=== PATIENT | male | born 1975 | race Caucasian/White ===

== ENCOUNTER 2018-12-11 15:59 | Inpatient (IN) | payer SELFPAY ==
[~2018-12-11] VITALS: Ht 185.4 cm; Wt 117.1 kg
--- NOTE | ~2018-12-11 | CON ---
[place], [place] REPORT OF CONSULTATION NAME: DORA LEE UNIT #: [id number] ROOM: 416 DOCTOR: DUY RIOS MDELIJAHLAWANDA BIRTHDATE: [birth year] DOS: 12/12/2018 GASTROENDOSCOPIC REPORT HISTORY OF PRESENT ILLNESS: This is a 43-year-old patient, who has presented with chief complaint of persistent nausea, vomiting, undergoing investigation and has consultation. At the time of admission, when he presented, white blood cell was 16, H and H was 17 and 49. His comprehensive metabolic panel: BUN and creatinine 24 and 1.6. His electrolytes, potassium was 3.1. Liver function test was within normal limits relatively except slight elevation of AST. Lipase was 95. CT scan of the abdomen and pelvis, no acute inflammatory process was seen. Gallbladder was intact. Lungs are clear. Liver, spleen, adrenal glands, pancreas, and kidneys, main organs are within normal limits. Troponin is within normal limits. Drug screening was THC positive slightly. White blood cell continued to be 14, elevated. Basic metabolic panel, electrolytes corrected. Hemoglobin A1c is 5. PAST MEDICAL HISTORY: Associated with dysphagia, nausea, renal insufficiency, epigastric pain, vomiting, also associated with gastroesophageal reflux and cannabis use. PAST SURGICAL HISTORY: Endoscopy and tonsillectomy. MEDICATIONS: Medication list include esomeprazole. ALLERGIES: No known medications. FAMILY HISTORY: Noncontributory. REVIEW OF SYSTEMS: HEENT: In general, denies double vision or blurred vision. RESPIRATORY: Denies acute shortness of breath. CARDIOVASCULAR: Denies acute chest pain. DIGESTIVE SYSTEM: Nausea or vomiting. PHYSICAL EXAMINATION: VITAL SIGNS: Stable. HEENT: Within normal limits. NECK: Supple. No thyromegaly. No cervical lymphadenopathy. CHEST: Symmetric anatomy, equal expansion. No wheeze. No rhonchi. HEART: Normal sinus rhythm. No gallop. No murmur. ABDOMEN: Soft. No hepato-organomegaly. Bowel sounds present. No pulsatile masses. EXTREMITIES: No cyanosis. No pedal edema. NEUROLOGIC: He is alert and oriented to time, place, and person. LABORATORY DATA: Labs are reviewed. Records are reviewed. IMPRESSION: Nausea, vomiting, renal insufficiency, leukocytosis could be secondary to nausea and vomiting, gastroesophageal reflux, and cannabis use. [place], [place] REPORT OF CONSULTATION NAME: DORA LEE UNIT #: [id number] ROOM: 416 DOCTOR: ROXI RIOS MD BIRTHDATE: [birth year] PLAN AND DISCUSSION: Endoscopic assessment. Labs are reviewed. Records are reviewed. Data was reviewed. We will consider endoscopy today. CT scan of the abdomen has been reviewed. Troponin has been reviewed, all normal. ROXI RIOS MD CM:CONSTR:REPORT OF CONSULTATION 1857 12/13/18 0230 interface
--- NOTE | ~2018-12-11 | EKG ---
[place], [place] ELECTROCARDIOGRAM REPORT NAME: DORA LEE UNIT #: [id number] ROOM: 416 DOCTOR: SUBHA DRAFT REPORT BIRTHDATE: [birth year] [facility] Test Date: 2018-12-12 Test Time: 00:34:43 Pat Name: DORA LEE Department: Room: 416 1 Gender: M Spiritual Advisor: : 1975 Requested By: SHAYNA KESSLER Order Number: [id number] Reading MD: Melo Rosas MD Measurements Intervals [place] Rate: 82 P: 63 NE: 142 QRS: 75 QRSD: 93 T: 41 QT: 370 QTc: 432 Interpretive Statements Sinus rhythm Electronically Signed On 12-12-2018 14:38:01 PDT by Melo Rosas MD CM:EKGRPT:ELECTROCARDIOGRAM REPORT 0034 1438 SHAYNA JACKSON DRAFT REPORT SHAYNA KESSLER DO
--- NOTE | ~2018-12-11 | O ---
[place], [place] OPERATIVE NOTE NAME: DORA LEE UNIT #: [id number] ROOM: 416 DOCTOR: GABRIEL OWENS,ROXI BIRTHDATE: [birth year] DOS: GASTROENDOSCOPIC REPORT INDICATIONS: The patient has presented with aggressive nausea, vomiting, persistently undergoing investigation. PROCEDURE: Today's procedure part of investigation is panendoscopy plus biopsy. PREMEDICATION: Propofol. SCOPE: Olympus forward-viewing gastroscope Q10 video. REPORT: After putting the patient in left lateral position and application of lubricant to the scope, the scope was introduced. Thereafter, under direct visualization, advanced through the length of esophagus without difficulty. Diffuse esophageal ulceration secondary to reflux was identified. Hiatal hernia noticed. Gastric pouch was entered. Large volume of bilious matter from the gastric pouch was suctioned out. Photographic series obtained. Antral biopsy was obtained. Duodenal bulb, second and third part within normal limits. The patient extubated, tolerated the procedure well. IMPRESSION: 1. Diffuse esophageal ulcer secondary to reflux, hiatal hernia. 2. Bile reflux gastritis, status post biopsy. PLAN AND DISCUSSION: Aggressive antireflux therapy. Elevation of the head of the bed 6 inch all time, Gaviscon as antacid of choice, Carafate 2 grams slurry q.6 hours, 2 hours a.c. meals and at bedtime, Gaviscon 1 tablet p.c meals, Protonix 40 mg IV b.i.d., Reglan 5 mg a.m. and p.m. Clinical reassessment. ROXI RIOS MD CM:OPRECORD:OPERATIVE NOTE 09 41 ROXI RIOS MD 12/12/181937 interface
[2018-12-11] MEDS ORDERED: NEXIUM40 MG PO (16:02)
[2018-12-11 16:03] VITALS: BP 147/100
[2018-12-11 16:50] LABS: BASO % 0.2 % (0.0-1.0); EOS % 0.1 % (1.0-4.0); HEMATOCRIT 49.5 % (42.0-52.0); HEMOGLOBIN 17.6 g/dl (14.0-18.0); LYMPH # 2.7 10*3/uL (1.3-4.4); LYMPH % 16.3 % (27.0-41.0); MEAN CORPUSCULAR HGB 31.7 pg (27.0-31.0); MEAN CORPUSCULAR HGB CONC 35.6 g/dl (33.0-37.0); MEAN PLATELET VOLUME 9.8 fl (9.6-12.3); MONO # 1.1 10*3/uL (0.1-1.0); MONO % 6.4 % (3.0-9.0); NEUT # 12.8 10*3/uL (2.3-7.9); NEUT % 76.6 % (47.0-73.0); PLATELET COUNT AUTOMATED 312 10*3/uL (130-400); RED BLOOD COUNT 5.56 10*6/uL (4.50-5.90); RED CELL DISTRI WIDTH 12.3 % (0-14.5); WHITE BLOOD COUNT 16.8 10*3/uL (4.8-10.8)
--- NOTE | 2018-12-11 17:00 | NUR ---
AFTER ADMINISTERING PAIN MEDICATION PT ASLEEP AND SPO2 DECREASED TO 89% RA. 3L O2 VIA NC INITIATED AT THIS TIME WITH AN INCREASED SPO2 OF 94%
[2018-12-11 17:02] LABS: ALBUMIN 4.5 gm/dl (3.1-4.5); CREATININE 1.64 mg/dL (0.70-1.30); POTASSIUM 3.1 mmol/L (3.5-5.1); TOTAL PROTEIN 8.8 gm/dL (6.4-8.2)
[2018-12-11 19:00] VITALS: BP 142/92
[2018-12-11 21:23] VITALS: BP 150/99
--- NOTE | 2018-12-11 21:23 | NUR ---
A 43, admitted to , under the services of DEMETRIO Carbajal DO with a diagnosis of EPIGASTRIC PAIN, VOMITING. Chief complaint is ABDOMINAL PAIN. Patient arrived via wheel chair from ER. Monitor applied. Initial assessment completed. Vital signs taken and recorded. DEMETRIO CARBAJAL DO notified of admission to the unit. Orders received. See assessment for past medical history, medications and allergies. Patient and/or family oriented to unit. [facility] visitation policy reviewed. Clothing/patient valuable form completed. RICHAR VILLARREAL
--- NOTE | 2018-12-11 21:36 | NUR ---
DR RIOS NOTIFIED OF CONSULT. NO NEW ORDERS RECEIVED AT THIS TIME. CONFIRMED THAT PATIENT WAS NPO AT MIDNIGHT.
--- NOTE | 2018-12-11 21:44 | NUR ---
UNABLE TO CONFIRM HOME MED OF NEXIUM AT THIS TIME D/T PHARMACY BEING CLOSED TODAY.
[2018-12-12] VITALS (8 sets, daily range): BP systolic 120–147; BP diastolic 65–87
--- NOTE | 2018-12-12 01:18 | NUR ---
PATIENT RECEIVED ZOFRAN FOR NAUSEA COMPLAINTS.
--- NOTE | 2018-12-12 01:29 | NUR ---
PATIENT RECEIVED MORPHINE FOR PAIN IN ABDOMEN RATED 8/10.
[2018-12-12 02:29] LABS: BILIRUBIN NEGATIVE (NEGATIVE); BLOOD NEGATIVE (NEGATIVE); CLARITY CLEAR (CLEAR); COLOR YELLOW (YELLOW); GLUCOSE NEGATIVE (NEGATIVE); KETONE NEGATIVE (NEGATIVE); LEUKO ESTERASE NEGATIVE (NEGATIVE); NITRITE NEGATIVE (NEGATIVE); SPECIFIC GRAVITY 1.025 (1.005-1.030); UROBILINOGEN 0.2 E.U./dl (0.2-1.0)
[2018-12-12 02:37] LABS: URINE AMPHETAMINES < 1000 (1000ng/ml); URINE BARBITURATES < 200 (200ng/ml); URINE BENZODIAZEPINES < 200 (200ng/ml); URINE CANNABINOIDS (THC) > 50 (50ng/ml); URINE COCAINE < 300 (300ng/ml); URINE METHADONE < 300 (300ng/ml); URINE OPIATES < 300 (300ng/ml)
[2018-12-12 02:40] LABS: URINE PHENCYCLIDINE < 25 (25ng/ml)
[2018-12-12 06:17] LABS: BASO # 0.1 10*3/uL (0.0-0.1); BASO % 0.6 % (0.0-1.0); EOS % 0.3 % (1.0-4.0); HEMATOCRIT 50.4 % (42.0-52.0); HEMOGLOBIN 17.2 g/dl (14.0-18.0); LYMPH # 3.3 10*3/uL (1.3-4.4); LYMPH % 22.5 % (27.0-41.0); MEAN CORPUSCULAR HGB 32.5 pg (27.0-31.0); MEAN CORPUSCULAR HGB CONC 34.1 g/dl (33.0-37.0); MEAN PLATELET VOLUME 10.1 fl (9.6-12.3); MONO # 1.1 10*3/uL (0.1-1.0); MONO % 7.3 % (3.0-9.0); NEUT # 10.2 10*3/uL (2.3-7.9); PLATELET COUNT AUTOMATED 274 10*3/uL (130-400); RED CELL DISTRI WIDTH 12.4 % (0-14.5); WHITE BLOOD COUNT 14.7 10*3/uL (4.8-10.8)
[2018-12-12 06:20] LABS: BUN 20 mg/dl (7-24); CHLORIDE 99 mmol/L (98-107); CREATININE 1.44 mg/dL (0.70-1.30); FREE T4 1.13 ng/dl (0.76-1.46); PHOSPHOROUS 3.5 mg/dL (2.5-4.9); POTASSIUM 3.7 mmol/L (3.5-5.1); SODIUM 139 mmol/L (136-145)
[2018-12-12 06:23] LABS: MEAN CELL VOLUME 95.1 fl (80.0-94.0)
[2018-12-12 06:26] LABS: THYROID STIM HORMONE (HS) 0.485 uIU/ml (0.358-4.75)
--- NOTE | 2018-12-12 08:09 | NUR ---
Awakened for VS. States no BM x 2 days. Declines need for softner.
--- NOTE | 2018-12-12 09:00 | NUR ---
Pole Climber in to talk to patient. Patient states lives at home with friend. There are few steps in the home. Physician: [facility] Patient's level of ADLs: INDEPENDENT Patient has working utilities: all working DME: none Follow-up physician's appointment after d/c: will be made by hospistalist nurse director upon discharge Does patient want to access PORTAL?: no Discharge plan discussed with patient, he lives at home, is independent in adls and ambulaton, patient states he will return home when able and denies any home needs. ITZ GONZALEZ
--- NOTE | 2018-12-12 09:04 | NUR ---
Re-oriented to place and time, noted short term memory loss as evidenced by repetative questions such as " my wifes coming in , right" Jez Barreto ACCIDENT REPORT CLERK in to [facility].
--- NOTE | 2018-12-12 09:06 | NUR ---
Dr. Hayes called in , update was given , Orders were rewcieved.
--- NOTE | 2018-12-12 09:45 | NUR ---
Medicated for c/o nausea and stomach pain . declined pain med, requested nausea med only . Monitor dc'd. self shower.
--- NOTE | 2018-12-12 12:37 | NUR ---
Phenergan effective to ease nausea/abdominal discomfort.
--- NOTE | 2018-12-12 16:11 | NUR ---
mEDICATED FOR PAIN AT 1400. EFFECTIVE.
--- NOTE | 2018-12-12 18:38 | NUR ---
To OR for EGD
--- NOTE | 2018-12-12 22:02 | NUR ---
PATIENT RECEIVED MORPHINE FOR PAIN IN ABDOMEN RATED 7/10. ALSO RECEIVED ZOFRAN FOR C/O NAUSEA.
--- NOTE | 2018-12-12 22:54 | NUR ---
PATIENT RECEIVED TYLENOL AND PHENERGAN FOR CONTINUED PAIN AND NAUSEA.
[2018-12-13] VITALS: BP 143/90
--- NOTE | 2018-12-13 01:50 | NUR ---
PAIN AND NAUSEA MEDS EFFECTIVE.
--- NOTE | 2018-12-13 02:03 | NUR ---
PATIENT RECEIVED NORCO FOR ABDOMINAL PAIN RATED 9/10, AND RESTORIL FOR SLEEP AID.
--- NOTE | 2018-12-13 06:02 | NUR ---
PATIENT RECEIVED MORPHINE FOR PAIN IN ABDOMEN RATED 8/10. PATIENT ANTSY AND RESTLESS. PATIENT ALSO RECEIVED ZOFRAN FOR NAUSEA.
[2018-12-13 06:25] LABS: BASO # 0.1 10*3/uL (0.0-0.1); BASO % 0.9 % (0.0-1.0); EOS # 0.1 10*3/uL (0.0-0.4); EOS % 0.7 % (1.0-4.0); HEMATOCRIT 46.7 % (42.0-52.0); LYMPH # 2.7 10*3/uL (1.3-4.4); LYMPH % 26.4 % (27.0-41.0); MEAN CELL VOLUME 92.8 fl (80.0-94.0); MEAN CORPUSCULAR HGB 31.8 pg (27.0-31.0); MEAN CORPUSCULAR HGB CONC 34.3 g/dl (33.0-37.0); MEAN PLATELET VOLUME 9.8 fl (9.6-12.3); MONO # 0.8 10*3/uL (0.1-1.0); MONO % 7.8 % (3.0-9.0); NEUT # 6.6 10*3/uL (2.3-7.9); NEUT % 63.9 % (47.0-73.0); PLATELET COUNT AUTOMATED 229 10*3/uL (130-400); RED BLOOD COUNT 5.03 10*6/uL (4.50-5.90); RED CELL DISTRI WIDTH 12.1 % (0-14.5); WHITE BLOOD COUNT 10.3 10*3/uL (4.8-10.8)
[2018-12-13 06:33] LABS: ALBUMIN 3.6 gm/dl (3.1-4.5); BUN 15 mg/dl (7-24); CHLORIDE 100 mmol/L (98-107); CREATININE 1.09 mg/dL (0.70-1.30); POTASSIUM 3.4 mmol/L (3.5-5.1); SODIUM 135 mmol/L (136-145)
[2018-12-13 08:00] VITALS: BP 153/93; BP 156/86
--- NOTE | 2018-12-13 08:36 | NUR ---
Side lying and pain free at this time. Adan INSTRUCTIONAL SU[facility]
--- NOTE | 2018-12-13 09:00 | NUR ---
case management visits with patient, he states he will return home when medically stable and denies any home needs
--- NOTE | 2018-12-13 10:40 | NUR ---
Discussed mdication and EGD result w/ pt.
--- NOTE | 2018-12-13 11:29 | NUR ---
Another Multi-Disciplinary Team meeting was held on 12/13/18, for the purpose of discharge planning. patient will need a couple more days in the hospital due to medication regime, no home needs ITZ GONZALEZ
[2018-12-13 12:00] VITALS: BP 148/88
[2018-12-13 16:00] VITALS: BP 154/78
--- NOTE | 2018-12-13 17:54 | NUR ---
Asleep at this time.
[2018-12-13 20:00] VITALS: BP 131/82
[2018-12-14] VITALS: BP 124/65
--- NOTE | 2018-12-14 04:35 | NUR ---
PATIENT RECEIVED ZOFRAN FOR C/O NAUSEA.
[2018-12-14 08:00] VITALS: BP 131/85
--- NOTE | 2018-12-14 08:37 | NUR ---
REGAN SHEN IN TO SEE PATIENT. PATIENT REQUESTED TO SHOWER. OKAY TO SHOWER.
--- NOTE | 2018-12-14 09:00 | NUR ---
case management visits with patient, patient states he will return home when able and denies any home needs
[2018-12-14 12:00] VITALS: BP 128/66
--- NOTE | 2018-12-14 13:01 | NUR ---
IN TO SEE PATIENT.
[2018-12-14] MEDS ORDERED: ACID GONE TABL1 EACH PO (14:41)
[2018-12-14] MEDS ORDERED: PROTONIX40 MG PO (14:41)
[2018-12-14] MEDS ORDERED: VITAMIN D32000 UNI1 PO (14:41)
[2018-12-14] MEDS ORDERED: Carafate1 GM PO (14:41)
[2018-12-14] MEDS ORDERED: REGLAN5 MG PO (14:42)
[2018-12-14] MEDS ORDERED: HYDROCODONE-AC1 EAC1 PO (14:43)
--- NOTE | 2018-12-14 15:35 | NUR ---
Discharge instructions reviewed with patient/family. Patient receptive and verbalizes understanding. Follow-up care arranged. Written instructions given to patient/family. PREETHI COOK.
--- NOTE | 2018-12-14 15:37 | NUR ---
PATIENT REFUSED SCRIPT FOR VICODIN. REGAN SHEN NOTIFIED.
--- NOTE | 2018-12-14 15:39 | NUR ---
PT DISCHARGED AT THIS TIME.
== END 2018-12-14 15:39 | disposition home or self-care (01) | DRG 380 ==
LOC: ED 15:59 → EDHOLD 20:02 → 4E 20:02 → EDHOLD 20:26 → 4E 20:34
PROVIDERS: Internal Medicine; Physician Assistant; Registered Nurse; ADMIT Internal Medicine
PROC: 0DB68ZX Excision of Stomach, Via Natural or Artificial Opening Endoscopic, Diagnostic (ICD-10-PCS; principal; 2018-12-12)
DX: K22.10 Ulcer of esophagus without bleeding (principal); N17.0 Acute kidney failure with tubular necrosis; R65.10 Systemic inflammatory response syndrome (SIRS) of non-infectious origin without acute organ dysfunction; E86.0 Dehydration; K29.70 Gastritis, unspecified, without bleeding; K21.0 Gastro-esophageal reflux disease with esophagitis; R13.10 Dysphagia, unspecified; F12.90 Cannabis use, unspecified, uncomplicated; E55.9 Vitamin D deficiency, unspecified; K44.9 Diaphragmatic hernia without obstruction or gangrene; Z87.891 Personal history of nicotine dependence

== ENCOUNTER 2019-02-01 01:48 | Inpatient (IN) | payer SELFPAY ==
[~2019-02-01] VITALS: Ht 185.4 cm; Wt 107.6 kg
[2019-02-01] VITALS (9 sets, daily range): BP systolic 132–185; BP diastolic 87–121
--- NOTE | ~2019-02-01 | CON ---
[place], [place] REPORT OF CONSULTATION NAME: DORA LEE UNIT #: [id number] ROOM: 521 DOCTOR: ROXI RIOS MD BIRTHDATE: [birth year] DOS: 02/01/2019 GASTROENDOSCOPIC REPORT INDICATIONS: This is a 44-year-old patient who has presented with chief complaint of nausea and vomiting, undergoing investigation. He cannot hold any food down. White blood cell was 15, H and H of 18 and 54, differential within normal limit. Comprehensive metabolic panel: Creatinine elevated to 1.4, GFR 55. Lactic acid of 2.2. PAST MEDICAL HISTORY: Associated esophageal ulcer, gastritis, dysphagia, marijuana use, tobacco use and gastroesophageal reflux. PAST SURGICAL HISTORY: Endoscopies and tonsillectomy. SOCIAL HISTORY: Nicotine and cannabis use, alcohol socially. FAMILY HISTORY: Noncontributory. ALLERGIES: No known medications. REVIEW OF SYSTEMS: HEENT: Denies double vision, blurred vision. RESPIRATORY: Denies acute shortness of breath. CARDIOVASCULAR: Denies acute chest pain. DIGESTIVE SYSTEM: No nausea or vomiting. PHYSICAL EXAMINATION: VITAL SIGNS: Stable. HEENT: Head normocephalic, nontraumatic. Mouth and buccal mucosa benign. NECK: Supple, no thyromegaly, no cervical lymphadenopathy. CHEST: Symmetric anatomy, equal expansion. No wheeze, no rhonchi. HEART: Normal sinus rhythm, no gallop, no murmur. ABDOMEN: Soft. No hepato-organomegaly. Bowel sounds present. No pulsatile mass. EXTREMITIES: No cyanosis, no pedal edema. NEUROLOGIC: Alert, oriented to time, place and person. LABORATORY DATA: Reviewed. Records reviewed. IMPRESSION: Recurrent nausea and vomiting. PLAN AND DISCUSSION: We are concerned as the source of pathology may be and the patient is going to be admitted for endoscopic assessment. His labs and records have been reviewed. He has had periodic encounters with this scenario in 12/11/2018. CT scan report at that time, no acute inflammatory process was seen along at that time intact gallbladder was intact. Liver, spleen, adrenal gland, pancreas all were intact and no specific report of pathology of concern raised on that CT. I am going to organize a HIDA scan in case there is biliary dyskinesia. Furthermore, I am going to start this patient on Protonix and [place], [place] REPORT OF CONSULTATION NAME: DORA LEE UNIT #: [id number] ROOM: 521 DOCTOR: ROXI RIOS MD BIRTHDATE: [birth year] Carafate, in addition to Reglan therapy and to see if he can have improvement of gastric emptying time. Clinical reassessment. ROXI RIOS MD CM:CONSTR:REPORT OF CONSULTATION 1237 02/01/19 1528 interface
--- NOTE | ~2019-02-01 | CON ---
[place], [place] REPORT OF CONSULTATION NAME: DORA LEE UNIT #: [id number] ROOM: 521 [facility] [birth year] CM:CONSTR:REPORT OF CONSULTATION 1721 02/04/19 0315 interface
--- NOTE | ~2019-02-01 | O ---
[place], [place] OPERATIVE NOTE NAME: DORA LEE UNIT #: [id number] ROOM: 521 DOCTOR: ROXI RIOS MD BIRTHDATE: [birth year] DOS: 02/01/2019 INDICATIONS: The patient is a 44-year-old patient who has presented with chief complaint of nausea, vomiting, undergoing investigation. PROCEDURE: Today's procedure part of investigation panendoscopy plus biopsy and photographic series. PREMEDICATION: Propofol. SCOPE: Olympus forward-viewing gastroscope Q10 video. REPORT: After putting the patient in left lateral position and application of lubricant to the scope, the scope was introduced. Thereafter, under direct visualization, advanced through the length of esophagus without difficulty. Gastric pouch was entered. Distal esophagitis secondary to reflux of large volume bile and blood in the gastric pouch was noticed. Photographed distal esophageal erosions seen. About 300 mL of and blood-tinged liquid out of the stomach was suctioned out after photographic series. Diffuse gastritis, gastric erosions seen. Duodenal bulb, second and third part patent. Air was suctioned out. Antral biopsy obtained. GI reflexion of the scope reveals cardia to be benign. The patient extubated, tolerated the procedure well. IMPRESSION: Distal esophagitis, distal esophageal erosions secondary to bile reflux. Hiatal hernia, gastritis, bile and blood retained in the stomach about 200+ mL, status post suctioning and diffuse gastritis and gastric erosions, status post biopsy. PLAN AND DISCUSSION: We are going to start this patient on Carafate 2 grams slurry q.6 hours, 2 hours before meals and at bedtime, Protonix 40 mg IV b.i.d. We are going to start him on Reglan as well 5 mg a.m. and p.m. to assess his nausea status. I am going to organize a HIDA scan of the gallbladder. ROXI RIOS MD CM:OPRECORD:OPERATIVE NOTE 1240 1305 ROXI RIOS MD 02/01/19 1304 interface
[~2019-02-01 01:48] MED LIST: ACID GONE TABL1 EACH PO; Carafate1 GM PO; HYDROCODONE-AC1 EAC1 PO; NEXIUM40 MG PO; PROTONIX40 MG PO; REGLAN5 MG PO; VITAMIN D32000 UNI1 PO
--- NOTE | 2019-02-01 02:15 | NUR ---
PATIENT REFUSES CT SCAN AT THIS TIME. DR NOTIFIED OF THIS. PATIENT STATES HE DOES NOT HAVE INSURANCE AND JUST HAD A CT SCAN 2 MONTHS AGO.
[2019-02-01 02:23] LABS: BASO # 0.1 10*3/uL (0.0-0.1); BASO % 0.7 % (0.0-1.0); EOS % 0.3 % (1.0-4.0); HEMATOCRIT 52.4 % (42.0-52.0); HEMOGLOBIN 18.2 g/dl (14.0-18.0); LYMPH # 1.8 10*3/uL (1.3-4.4); LYMPH % 11.5 % (27.0-41.0); MEAN CELL VOLUME 91.1 fl (80.0-94.0); MEAN CORPUSCULAR HGB 31.7 pg (27.0-31.0); MEAN CORPUSCULAR HGB CONC 34.7 g/dl (33.0-37.0); MEAN PLATELET VOLUME 9.5 fl (9.6-12.3); MONO # 0.5 10*3/uL (0.1-1.0); MONO % 3.4 % (3.0-9.0); NEUT # 12.9 10*3/uL (2.3-7.9); NEUT % 83.6 % (47.0-73.0); PLATELET COUNT AUTOMATED 319 10*3/uL (130-400); RED BLOOD COUNT 5.75 10*6/uL (4.50-5.90); RED CELL DISTRI WIDTH 12.2 % (0-14.5); WHITE BLOOD COUNT 15.4 10*3/uL (4.8-10.8)
[2019-02-01 02:39] LABS: ALBUMIN 4.1 gm/dl (3.1-4.5); ALKALINE PHOSPHATASE 79 U/L (45-117); BUN 13 mg/dl (7-24); CHLORIDE 106 mmol/L (98-107); CREATININE 1.41 mg/dL (0.70-1.30); LIPASE 89 U/L (73-393); POTASSIUM 3.6 mmol/L (3.5-5.1); SGOT/AST 30 IU/L (3-35); SODIUM 141 mmol/L (136-145); TOTAL PROTEIN 8.7 gm/dL (6.4-8.2)
[2019-02-01 02:40] LABS: SGPT/ALT 40 U/L (12-78)
--- NOTE | 2019-02-01 03:38 | NUR ---
PATIENT TRIED TO GET CT SCAN AND STATES "IM TOO SICK AND WHEN I LAY DOWN I FEEL LIKE IM GOING TO VOMIT." DR NOTIFIED OF THIS. PATIENT ALSO STATES "ITS NOT SO MUCH THE PAIN ITS THE NAUSEA."
--- NOTE | 2019-02-01 04:24 | NUR ---
PATIENT STILL UNABLE TO PROVIDE THIS RN WITH URINE SPECIMEN.
--- NOTE | 2019-02-01 04:55 | NUR ---
Time: 454 A 44 year old MALE admitted to 5E under services of AMARI MARTINS DO. Pt. arrived via wheel chair from ER. Chief complaint: NAUEA AND VOMITING. BEKAH LOWE
--- NOTE | 2019-02-01 04:55 | NUR ---
Time: 454 A 44 year old MALE admitted to 5E under services of AMARI MARTINS DO. Pt. arrived via wheel chair from ER. Chief complaint: NAUSEA/VOMITING. ESSIE DANG
--- NOTE | 2019-02-01 05:17 | NUR ---
NOTIFIED OF PATIENT'S ARRIVAL TO FLOOR. NEW ORDERS TO FOLLOW.
--- NOTE | 2019-02-01 05:25 | NUR ---
CALLED DR. OAKLEY FOR ADMISSION ORDERS.
--- NOTE | 2019-02-01 08:33 | NUR ---
DR WILLETT NOTIFIED OF HTN AT 184/90 AT REST.
--- NOTE | 2019-02-01 11:07 | NUR ---
DR RIOS STATES TO SCOPE TODAY.
--- NOTE | 2019-02-01 13:30 | NUR ---
THROROUGHLY EDUCATED ON NEED FOR PO MEDS PER DR RIOS, PT STILL REFUSING.
--- NOTE | 2019-02-01 14:00 | NUR ---
EDUCATED ON FUTURE TESTING.
--- NOTE | 2019-02-01 16:00 | NUR ---
DR SAEZ NOTIFIED OF BP AT 180/110.
--- NOTE | 2019-02-01 21:20 | NUR ---
NOTIFIED DR. OAKLEY OF PATIENTS HIGH BLOOD PRESSURE. AWAITING ORDERS.
[2019-02-02] VITALS (8 sets, daily range): BP systolic 141–180; BP diastolic 86–106
--- NOTE | 2019-02-02 00:08 | NUR ---
NOTIFIED DR. OAKLEY OF PATIENTS PRESSURE, 170/100. PATIENT ALSO COMPLAINING OF A HEADACHE. REFUSING TO TAKE TYLENOL. AWAITING ORDERS.
[2019-02-02 02:55] LABS: BILIRUBIN NEGATIVE (NEGATIVE); BLOOD TRACE-INTACT (NEGATIVE); CLARITY CLEAR (CLEAR); COLOR YELLOW (YELLOW); GLUCOSE NEGATIVE (NEGATIVE); KETONE 1+ (NEGATIVE); LEUKO ESTERASE NEGATIVE (NEGATIVE); NITRITE NEGATIVE (NEGATIVE); UROBILINOGEN 0.2 E.U./dl (0.2-1.0)
[2019-02-02 03:03] LABS: WBC 0-2 wbc/hpf (0-5)
--- NOTE | 2019-02-02 03:57 | NUR ---
NOTIFIED DR. OAKLEY OFPATIENT BLOOD PRESSURE,180/106. SEE NEW ORDERS,
[2019-02-02 06:10] LABS: BASO % 0.2 % (0.0-1.0); EOS % 0.1 % (1.0-4.0); HEMOGLOBIN 19.1 g/dl (14.0-18.0); LYMPH # 1.6 10*3/uL (1.3-4.4); LYMPH % 9.1 % (27.0-41.0); MEAN CELL VOLUME 90.5 fl (80.0-94.0); MEAN CORPUSCULAR HGB 31.4 pg (27.0-31.0); MEAN CORPUSCULAR HGB CONC 34.7 g/dl (33.0-37.0); MEAN PLATELET VOLUME 9.7 fl (9.6-12.3); MONO # 1.4 10*3/uL (0.1-1.0); MONO % 7.6 % (3.0-9.0); NEUT # 14.8 10*3/uL (2.3-7.9); NEUT % 82.6 % (47.0-73.0); PLATELET COUNT AUTOMATED 301 10*3/uL (130-400); RED BLOOD COUNT 6.08 10*6/uL (4.50-5.90); RED CELL DISTRI WIDTH 12.3 % (0-14.5); WHITE BLOOD COUNT 17.9 10*3/uL (4.8-10.8)
[2019-02-02 06:30] LABS: BUN 8 mg/dl (7-24); CHLORIDE 102 mmol/L (98-107); CREATININE 0.95 mg/dL (0.70-1.30); PHOSPHOROUS 2.1 mg/dL (2.5-4.9); POTASSIUM 3.3 mmol/L (3.5-5.1); SODIUM 134 mmol/L (136-145)
--- NOTE | 2019-02-02 07:01 | NUR ---
PATIENT OFF FLOOR FOR HIDA SCAN.
--- NOTE | 2019-02-02 08:00 | NUR ---
OFF FLOOR FOR TESTING.
--- NOTE | 2019-02-02 09:00 | NUR ---
Music Historian in to talk to patient. Patient states lives at home with friend. There are few steps in the home. Physician: [facility] Pharmacy: [facility] health services: none Patient's level of ADLs: INDEPENDENT Patient has working utilities: all working DME: none Follow-up physician's appointment after d/c: will be made by hospitalist nurse director upon discharged Does patient want to access PORTAL?: no Discharge plan discussed with patient, he lives at home with friend, is independent in adls and ambulation, he states he will return home when medicallly stable, Med assist will visit with him to help him fill out forms for help with the cost of the hosptial stay, case management will follow. ITZ GONZALEZ
--- NOTE | 2019-02-02 10:18 | NUR ---
Medicated with iv phenergan as ordered per pt request for c/o nausea. Still refsuing po meds, pt re-educated.
--- NOTE | 2019-02-02 11:00 | NUR ---
MEDICATION EFFECTIVE FOR NAUSEA.
--- NOTE | 2019-02-02 20:57 | NUR ---
PATIENT CONTINUES TO REFUSE ANY PO MEDICATIONS, STATES HIS STOMACH HURTS AND NEEDS TIME TO HEAL BEFORE HE CAN TAKE ANYTHING IN TO IT. PATIENT EDUCATED ABOUT IMPORTANCE OF MEDICATIONS IN HIS TREATMENT, PATIENT STILL ADAMATELY REFUSING, DRS ARE ALREADY AWARE. PATIENT DENIES ANY OTHER COMPLAINTS AT THIS TIME. RN WILL CONTINUE TO MONITOR
--- NOTE | 2019-02-03 03:40 | NUR ---
RN CALLED INTO PATIENTS ROOM, IV PUMP ALARMING AND IS READING DISTAL OCCLUSION RN ATTEMPTED TO FLUSH IV SITE, BUT IV SIGHT IS OCCLUDED. PATIENT VERY DRAMATIC WHEN RN REMOVED IV, SCREAMING AND SWEARING AT RN. PATIENT ALSO VERY BLUNT WITH BEHAVIOR TOWARDS NURSE. PATIENT VERY PICKY ABOUT IV PLACEMENT. RN UNSUCCESSFUL AFTER 2 ATTEMPTS. PATIENT HS NOW GOTTEN MORE AGGRESSIVE AND IS REFUSING TO LET RN MAKE ANYMORE ATTEMPTS AND IS REFUSING TO ALLOW ANYONE ELSE TO TRY. WILL REATTEMPT LATER, AND WILL LET DRS KNOW.
[2019-02-03 06:35] LABS: BASO # 0.1 10*3/uL (0.0-0.1); BASO % 0.8 % (0.0-1.0); EOS # 0.1 10*3/uL (0.0-0.4); EOS % 0.9 % (1.0-4.0); HEMATOCRIT 51.5 % (42.0-52.0); HEMOGLOBIN 17.6 g/dl (14.0-18.0); LYMPH # 2.9 10*3/uL (1.3-4.4); LYMPH % 20.9 % (27.0-41.0); MEAN CELL VOLUME 92.3 fl (80.0-94.0); MEAN CORPUSCULAR HGB 31.5 pg (27.0-31.0); MEAN CORPUSCULAR HGB CONC 34.2 g/dl (33.0-37.0); MEAN PLATELET VOLUME 9.5 fl (9.6-12.3); MONO # 1.2 10*3/uL (0.1-1.0); MONO % 8.8 % (3.0-9.0); NEUT # 9.6 10*3/uL (2.3-7.9); NEUT % 68.2 % (47.0-73.0); PLATELET COUNT AUTOMATED 246 10*3/uL (130-400); RED BLOOD COUNT 5.58 10*6/uL (4.50-5.90); RED CELL DISTRI WIDTH 12.5 % (0-14.5); WHITE BLOOD COUNT 14.1 10*3/uL (4.8-10.8)
[2019-02-03 06:52] LABS: ALBUMIN 3.3 gm/dl (3.1-4.5); ALKALINE PHOSPHATASE 62 U/L (45-117); BUN 14 mg/dl (7-24); CHLORIDE 105 mmol/L (98-107); CREATININE 1.12 mg/dL (0.70-1.30); POTASSIUM 3.7 mmol/L (3.5-5.1); SGOT/AST 19 IU/L (3-35); SGPT/ALT 22 U/L (12-78); SODIUM 138 mmol/L (136-145); TOTAL PROTEIN 7.7 gm/dL (6.4-8.2)
--- NOTE | 2019-02-03 07:15 | NUR ---
ARRIVED ON SHIFT, INTRODUCED TO PATIENT,BEDSIDE REPORT RECEIVED, WHITE BOARD UPDATED, NO NEEDS VOICED AT THIS TIME.
[2019-02-03 08:00] VITALS: BP 138/90
--- NOTE | 2019-02-03 08:10 | NUR ---
Shift chart check completed.
--- NOTE | 2019-02-03 09:00 | NUR ---
case management visits with patient, he denies any needs at this time
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
[2019-02-03 16:00] VITALS: BP 140/86
--- NOTE | 2019-02-03 17:37 | NUR ---
RECEIVED VERBAL ORDER FROM DR. RIOS, FOR CHEMA BRENNAN. CONSULT PUT IN AND IN CALLED DR. BEAR AND SR. PATTERSON SPOKE WITH HIM REGARDING CONSULT.
--- NOTE | 2019-02-03 21:30 | NUR ---
patient is again refusing po intake as well as his prescribed medications. states he is still to sick. rn provided education to patient and patient continue to adamatly refuse. rn will continue to monitor
[2019-02-04] VITALS: BP 124/82
--- NOTE | 2019-02-04 04:30 | NUR ---
patient resting in bed with eyes closed at this time, appears to be sleeping. no signs or symptoms of distress are seen. respirations are quiet and unlabored on room air. call light is within reach. bed low. wheels locked. rn will continue to monitor this patient.
[2019-02-04 08:00] VITALS: BP 123/65
[2019-02-04] MEDS ORDERED: CARAFATE1 GM PO (14:56)
[2019-02-04] MEDS ORDERED: REGLAN5 MG PO (14:56)
[2019-02-04] MEDS ORDERED: NEXIUM20 M1 PO (14:56)
--- NOTE | 2019-02-04 15:19 | NUR ---
Discharge instructions reviewed with patient/family. Patient receptive and verbalizes understanding. Follow-up care arranged. Written instructions given to patient/family. HEPLOCK DISCONTINUED. PATIENT AMBULATORY OFF FLOOR. GABRIELA VALENTIN
== END 2019-02-04 16:03 | disposition home or self-care (01) | DRG 871 ==
LOC: ED 01:48 → 5E 04:33 → EDHOLD 04:33 → 5E 04:44
PROVIDERS: Emergency Medicine; Student in an Organized Health Care Education/Training Program; ADMIT Internal Medicine
PROC: 0DB68ZX Excision of Stomach, Via Natural or Artificial Opening Endoscopic, Diagnostic (ICD-10-PCS; principal; 2019-02-01)
DX: A41.9 Sepsis, unspecified organism (principal); N17.0 Acute kidney failure with tubular necrosis; K25.4 Chronic or unspecified gastric ulcer with hemorrhage; K22.11 Ulcer of esophagus with bleeding; R65.20 Severe sepsis without septic shock; R73.9 Hyperglycemia, unspecified; A08.4 Viral intestinal infection, unspecified; D75.1 Secondary polycythemia; E88.09 Other disorders of plasma-protein metabolism, not elsewhere classified; E66.9 Obesity, unspecified; I16.0 Hypertensive urgency; F12.10 Cannabis abuse, uncomplicated; E55.9 Vitamin D deficiency, unspecified; F17.210 Nicotine dependence, cigarettes, uncomplicated; K21.0 Gastro-esophageal reflux disease with esophagitis; K44.9 Diaphragmatic hernia without obstruction or gangrene; K81.1 Chronic cholecystitis; Z71.6 Tobacco abuse counseling

== ENCOUNTER 2019-03-11 11:30 | Inpatient (IN) | payer SELFPAY ==
[~2019-03-11] VITALS: Ht 185.4 cm; Wt 112.5 kg
[~2019-03-11 11:30] MED LIST changes: +CARAFATE1 GM PO; +NEXIUM20 M1 PO
[2019-03-11 11:34] VITALS: BP 134/104
[2019-03-11 12:09] LABS: BASO # 0.1 10*3/uL (0.0-0.1); BASO % 0.4 % (0.0-1.0); EOS # 0.1 10*3/uL (0.0-0.4); EOS % 0.8 % (1.0-4.0); HEMATOCRIT 51.1 % (42.0-52.0); HEMOGLOBIN 18.6 g/dl (14.0-18.0); LYMPH # 1.9 10*3/uL (1.3-4.4); MEAN CORPUSCULAR HGB CONC 36.4 g/dl (33.0-37.0); MEAN PLATELET VOLUME 9.8 fl (9.6-12.3); MONO # 1.1 10*3/uL (0.1-1.0); MONO % 7.5 % (3.0-9.0); NEUT # 11.2 10*3/uL (2.3-7.9); PLATELET COUNT AUTOMATED 297 10*3/uL (130-400); RED BLOOD COUNT 5.81 10*6/uL (4.50-5.90); RED CELL DISTRI WIDTH 11.9 % (0-14.5); WHITE BLOOD COUNT 14.4 10*3/uL (4.8-10.8)
[2019-03-11 12:26] LABS: ALBUMIN 4.6 gm/dl (3.1-4.5); ALKALINE PHOSPHATASE 66 U/L (45-117); BUN 18 mg/dl (7-24); CHLORIDE 87 mmol/L (98-107); CREATININE 1.41 mg/dL (0.70-1.30); LIPASE 148 U/L (73-393); POTASSIUM 3.1 mmol/L (3.5-5.1); SGOT/AST 21 IU/L (3-35); SGPT/ALT 41 U/L (12-78); SODIUM 131 mmol/L (136-145); TOTAL PROTEIN 8.9 gm/dL (6.4-8.2)
[2019-03-11 12:27] LABS: TROPONIN I < 0.015 ng/ml (<0.045)
--- NOTE | 2019-03-11 14:19 | NUR ---
[facility]
--- NOTE | 2019-03-11 15:52 | NUR ---
PATIENT ENCOURAGED TO VOID FOR URINE SPECIMEN
[2019-03-11 16:40] VITALS: BP 150/96
--- NOTE | 2019-03-11 16:40 | NUR ---
Time: 1639 A 44 year old MALE admitted to under services of ARIC MOURA DO. Pt. arrived via BED from ER. Chief complaint: ABDOMINAL PAIN AND NAUSEA X 1-2 WEEKS. GABRIELA VALENTIN
[2019-03-11 17:00] VITALS: BP 150/96
--- NOTE | 2019-03-11 17:18 | NUR ---
NOTIFIED OF CONSULT & HE WILL SEE PATIENT TOMORROW.
--- NOTE | 2019-03-11 19:56 | NUR ---
Neurological: AAOX3 Respiratory: ROOM AIR, NONLABORED Breath sounds: CLEAR T/O Cough: NONE NOTED Cardiovascular: HRR, DENIES CP/PRESSURE, NO EDEMA, PPP Gastrointestinal: NORMOACTIVE X4 QUADS, DENIES N/V/D/C, ABD SOFT/TENDER TO PALPATION/NONDISTENDED Genito/Urinary: DENIES DYSURIA Musculoskeketal: AMBULATORY, SKIN INTACT PATIENT IS RESTING IN BED WITH NO C/O OR S/S OF DISTRESS NOTED AT THIS TIME. BED IS LOW, LOCKED, AND CALL LIGHT IS WITHIN REACH. WILL CONTINUE TO MONITOR, SEE SHIFT ASSESSMENT. JOYCE MATHIAS A
[2019-03-11 20:00] VITALS: BP 128/76
--- NOTE | 2019-03-11 21:27 | NUR ---
GI COCKTAIL AND MORPHINE GIVEN FOR ABDOMINAL PAIN WELL PRN RESTORIL. CALL LIGHT IS WITHIN REACH, WILL MONITOR EFFECT.
--- NOTE | 2019-03-11 22:30 | NUR ---
PRN MEDICATIONS EFFECTIVE. PATIENT IS SLEEPING. CALL LIGHT IS WITHIN REACH.
[2019-03-12] VITALS: BP 118/68
--- NOTE | 2019-03-12 03:53 | NUR ---
GI COCTAIL AND MORPHINE GIVEN AT THIS TIME FOR C/O ABDOMINAL PAIN. CALL LIGHT IS WITHIN REACH, WILL MONITOR EFFECT.
[2019-03-12 04:34] LABS: BILIRUBIN 1+ (NEGATIVE); BLOOD NEGATIVE (NEGATIVE); CLARITY CLEAR (CLEAR); COLOR YELLOW (YELLOW); GLUCOSE NEGATIVE (NEGATIVE); KETONE 2+ (NEGATIVE); LEUKO ESTERASE NEGATIVE (NEGATIVE); NITRITE NEGATIVE (NEGATIVE); UROBILINOGEN 0.2 E.U./dl (0.2-1.0)
--- NOTE | 2019-03-12 05:00 | NUR ---
PRN MEDICATIONS EFFECTIVE PER PATIENT.
[2019-03-12 06:44] LABS: BASO # 0.1 10*3/uL (0.0-0.1); BASO % 0.7 % (0.0-1.0); EOS # 0.1 10*3/uL (0.0-0.4); EOS % 1.1 % (1.0-4.0); HEMATOCRIT 44.7 % (42.0-52.0); HEMOGLOBIN 15.3 g/dl (14.0-18.0); LYMPH # 1.9 10*3/uL (1.3-4.4); LYMPH % 23.2 % (27.0-41.0); MEAN CORPUSCULAR HGB 30.9 pg (27.0-31.0); MEAN CORPUSCULAR HGB CONC 34.2 g/dl (33.0-37.0); MEAN PLATELET VOLUME 10.3 fl (9.6-12.3); MONO # 0.8 10*3/uL (0.1-1.0); MONO % 9.6 % (3.0-9.0); NEUT # 5.3 10*3/uL (2.3-7.9); RED BLOOD COUNT 4.95 10*6/uL (4.50-5.90); RED CELL DISTRI WIDTH 11.9 % (0-14.5); WHITE BLOOD COUNT 8.1 10*3/uL (4.8-10.8)
[2019-03-12 06:47] LABS: MEAN CELL VOLUME 90.3 fl (80.0-94.0); PLATELET COUNT AUTOMATED 196 10*3/uL (130-400)
[2019-03-12 07:08] LABS: BUN 9 mg/dl (7-24); CHLORIDE 98 mmol/L (98-107); POTASSIUM 3.7 mmol/L (3.5-5.1); SODIUM 136 mmol/L (136-145)
[2019-03-12 07:16] LABS: ACT PARTIAL THROMBO TIME 28.6 SECONDS (20.0-32.1)
[2019-03-12 07:20] LABS: CHOLESTEROL 142 mg/dL (<200); CREATININE 1.07 mg/dL (0.70-1.30); FREE T4 1.27 ng/dl (0.76-1.46); HDL CHOLESTEROL 32 mg/dl (40-60); LDL CHOLESTEROL 95 mg/dL (9-159); PHOSPHOROUS 2.9 mg/dL (2.5-4.9); TRIGLYCERIDES 76 mg/dl (<150); VLDL CHOLESTEROL 15 mg/dL (6-40)
[2019-03-12 08:00] VITALS: BP 127/76
[2019-03-12 08:17] LABS: VITAMIN D, 25-HYDROXY 22.8 ng/mL (30-100)
[2019-03-12 12:00] VITALS: BP 111/72
--- NOTE | 2019-03-12 12:53 | NUR ---
PT ASLEEP. NO S/S OF DISTRESS NOTED.
[2019-03-12 16:00] VITALS: BP 144/91
--- NOTE | 2019-03-12 16:22 | NUR ---
PT MEDICATED WITH COMPAZINE FOR C/O NAUSEA. WILL MONITOR.
--- NOTE | 2019-03-12 19:55 | NUR ---
Patient resting quietly with no c/o discomfort. Respirations easy and regular. Vital signs stable. No overt distress. DENIZ NOONAN
[2019-03-12 20:00] VITALS: BP 118/78; BP 92/63
--- NOTE | 2019-03-12 23:03 | NUR ---
PT COMPLAINING OF NEEDING SOMETHING TO HELP HIM SLEEP PRN RESTOIRL GIVEN
--- NOTE | 2019-03-12 23:38 | NUR ---
24 HR CHART CHECK COMPLETE
[2019-03-13] VITALS: BP 104/80
--- NOTE | 2019-03-13 04:18 | NUR ---
PT OBSERVED, IN ROOM RESTING QUIETLY SLEEPING, NO COMPLAINTS
[2019-03-13 08:00] VITALS: BP 126/78
[2019-03-13] MEDS ORDERED: NEXIUM20 M1 PO (08:33)
[2019-03-13] MEDS ORDERED: CARAFATE1 GM PO (08:33)
--- NOTE | 2019-03-13 08:50 | NUR ---
PT RESTING IN BED. RESP-EASY AND REGULAR. PT STARTED TO YELL AT ME REGARDING NOONE TELLING HIM WHY HE WAS ANTIBIOTICS. 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 I SPOKE WITH DR. SANTANA AND HE DID EXPLAIN IT TO PT. SO I EXPLAINED TO PT ABOUT THE REASON FOR ANTIBIOTIC AND HE STILL IS VERY UPSET AND YELLING AT ME ABOUT HIM BEING SENT HOME AND ON ANTIBIOTICS. I TOLD PT HE HAS RIGHT TO REFUSE MEDICATION. HE STATES NO GIVE IT TO ME AND DON'T TALK TO HIM ANYMORE. ANTIBIOTIC INFUSING WITH NO PROBLEM. CALL LIGHT IN REACH. SEE SHIFT ASSESSMENT.
--- NOTE | 2019-03-13 11:30 | NUR ---
Discharge instructions reviewed with patient/family. Patient receptive and verbalizes understanding. Follow-up care arranged. Written instructions given to patient/family. HEPLOCK REMOVED. 2X2 APPLIED. WAITING FOR RIDE. BEKAH MUNGUIA
--- NOTE | 2019-03-13 11:48 | NUR ---
Prepress Proofer in to talk to patient. Patient states lives at HOME with GIRLFRIEND. There are BASEMENT steps in the home. Physician: NONE AT THIS TIME Pharmacy: [facility] Home health services: NONE Patient's level of ADLs: INDEPENDENT Patient has working utilities: YES DME: NONE Follow-up physician's appointment after d/c: WILL FIND ONE AND MAKE APPOINTMENT AFTER DISCHARGED. INFORMED OF RESIDENT CLINIC Does patient want to access PORTAL?: NO Discharge plan PT LIVES AT HOME WITH GIRLFRIEND AND IS INDEPENDENT IN HIS CARE. DENIES HE WILL HAVE ANY NEEDS ON DISCHARGE. WILL RETURN HOME WHEN MEDICALLY STABLE. WILL CONTINUE TO FOLLOW. STATES HE WILL HAVE A RIDE. SHADY MCCABE
--- NOTE | 2019-03-13 12:50 | NUR ---
PT AMBULATORY OFF THE FLOOR WITH VISITOR. VERBALIZED UNDERSTANDING OF DISCHARGE INSTRUCTIONS.
== END 2019-03-13 12:50 | disposition home or self-care (01) | DRG 872 ==
LOC: ED 11:30 → EDHOLD 15:33 → 4E 15:33
PROVIDERS: Internal Medicine; Nurse Practitioner; ADMIT Family Medicine
DX: A41.9 Sepsis, unspecified organism (principal); N17.9 Acute kidney failure, unspecified; K22.10 Ulcer of esophagus without bleeding; E87.1 Hypo-osmolality and hyponatremia; R65.20 Severe sepsis without septic shock; A08.4 Viral intestinal infection, unspecified; E66.9 Obesity, unspecified; E87.6 Hypokalemia; R73.9 Hyperglycemia, unspecified; E83.41 Hypermagnesemia; F17.210 Nicotine dependence, cigarettes, uncomplicated; K21.0 Gastro-esophageal reflux disease with esophagitis; F12.90 Cannabis use, unspecified, uncomplicated; K29.50 Unspecified chronic gastritis without bleeding; Z71.6 Tobacco abuse counseling; Z80.8 Family history of malignant neoplasm of other organs or systems; Z82.49 Family history of ischemic heart disease and other diseases of the circulatory system; Z68.32 Body mass index [BMI] 32.0-32.9, adult

== ENCOUNTER 2019-05-11 13:31 | Inpatient (IN) | payer SELFPAY ==
[~2019-05-11] VITALS: Ht 182.8 cm; Wt 94.0 kg
[2019-05-11 13:43] VITALS: BP 155/104
--- NOTE | 2019-05-11 15:15 | NUR ---
PT REFUSES TO GIVE A URINE SAMPLE, STATES " I BETTER BE ADMITTED"
--- NOTE | 2019-05-11 15:55 | NUR ---
PT UP AMBULATING TO THE BATHROOM, NO DISTRESS NOTED AT THAT TIME. WILL CONTINUE TO MONITOR.
[2019-05-11 15:59] LABS: HEMATOCRIT 51.5 % (42.0-52.0); HEMOGLOBIN 17.8 g/dl (14.0-18.0); MEAN CELL VOLUME 90.7 fl (80.0-94.0); MEAN CORPUSCULAR HGB 31.3 pg (27.0-31.0); MEAN CORPUSCULAR HGB CONC 34.6 g/dl (33.0-37.0); MEAN PLATELET VOLUME 9.6 fl (9.6-12.3); PLATELET COUNT AUTOMATED 239 10*3/uL (130-400); RED BLOOD COUNT 5.68 10*6/uL (4.50-5.90); RED CELL DISTRI WIDTH 12.5 % (0-14.5); WHITE BLOOD COUNT 12.6 10*3/uL (4.8-10.8)
[2019-05-11 16:09] LABS: ACT PARTIAL THROMBO TIME 24.8 SECONDS (20.0-32.1)
[2019-05-11 16:15] LABS: ALBUMIN 4.3 gm/dl (3.1-4.5); ALKALINE PHOSPHATASE 77 U/L (45-117); BUN 14 mg/dl (7-24); CHLORIDE 102 mmol/L (98-107); CREATININE 1.38 mg/dL (0.70-1.30); LIPASE 64 U/L (73-393); POTASSIUM 3.7 mmol/L (3.5-5.1); SGOT/AST 18 IU/L (3-35); SGPT/ALT 23 U/L (12-78); SODIUM 139 mmol/L (136-145); TOTAL PROTEIN 8.4 gm/dL (6.4-8.2); TROPONIN I < 0.015 ng/ml (<0.045)
--- NOTE | 2019-05-11 16:15 | NUR ---
PT MEDICATED WITH DILAUDID PER ORDER. CALL LIGHT IN REACH WILL MONITOR.
[2019-05-11 16:21] LABS: TOTAL CELLS COUNTED 100 #CELLS
[2019-05-11 16:22] LABS: PLATELET SUFFICIENCY NORMAL (NORMAL)
[2019-05-11 16:29] VITALS: BP 142/87
[2019-05-11 17:22] VITALS: BP 141/74
--- NOTE | 2019-05-11 17:30 | NUR ---
PT RESTING IN ROOM, STATES DILUADID WAS EFFECTIVE. NO ACTIVE VOMITING NOTED AT ANY TIME IN THE ER.
[2019-05-11 20:00] VITALS: BP 158/90
[2019-05-11 20:20] VITALS: BP 158/90
--- NOTE | 2019-05-11 20:20 | NUR ---
Time: 2019 A 44 year old MALE admitted to 5E under services of MAYLIN GUERRA DO. Pt. arrived via wheel chair from ER. Chief complaint: ABDOMINAL PAIN. MARISSA BRADSHAW
--- NOTE | 2019-05-11 20:38 | NUR ---
NOTIFIED DR. GOVEA OF NEW CONSULT. EGD IN AM. START PATIENT ON 40MG IV PROTONIX BID. NPO AT MIDNIGHT.
--- NOTE | 2019-05-11 21:09 | NUR ---
PATIENT LAYING IN BED CRYING, C/O ABDOMINAL PAIN. 12/29. MEDICATED WITH DILAUDID. WILL CHECK EFFECTIVENESS.
[2019-05-12] VITALS (7 sets, daily range): BP systolic 107–157; BP diastolic 75–92
--- NOTE | 2019-05-12 01:47 | NUR ---
PATIENT C/O ABDOMINAL PAIN RATES 11/29. MEDICATED WITH DILAUDID. WILL CHECK EFFECTIVENESS.
[2019-05-12 05:48] LABS: BILIRUBIN NEGATIVE (NEGATIVE); BLOOD NEGATIVE (NEGATIVE); CLARITY CLEAR (CLEAR); COLOR YELLOW (YELLOW); GLUCOSE NEGATIVE (NEGATIVE); KETONE 1+ (NEGATIVE); SPECIFIC GRAVITY 1.015 (1.005-1.030)
[2019-05-12 05:49] LABS: LEUKO ESTERASE NEGATIVE (NEGATIVE); NITRITE NEGATIVE (NEGATIVE); RBC 0-2 rbc/hpf (0-2); URINE AMPHETAMINES < 1000 (1000ng/ml); URINE BARBITURATES < 200 (200ng/ml); URINE BENZODIAZEPINES < 200 (200ng/ml); URINE CANNABINOIDS (THC) > 50 (50ng/ml); URINE COCAINE < 300 (300ng/ml); URINE METHADONE < 300 (300ng/ml); URINE OPIATES > 300 (300ng/ml); UROBILINOGEN 0.2 E.U./dl (0.2-1.0); WBC 0-2 wbc/hpf (0-5)
[2019-05-12 05:50] LABS: URINE PHENCYCLIDINE < 25 (25ng/ml)
[2019-05-12 06:05] LABS: BASO # 0.1 10*3/uL (0.0-0.1); BASO % 0.4 % (0.0-1.0); EOS % 0.2 % (1.0-4.0); HEMATOCRIT 47.6 % (42.0-52.0); HEMOGLOBIN 15.8 g/dl (14.0-18.0); LYMPH # 2.1 10*3/uL (1.3-4.4); LYMPH % 17.8 % (27.0-41.0); MEAN CORPUSCULAR HGB 30.2 pg (27.0-31.0); MEAN CORPUSCULAR HGB CONC 33.2 g/dl (33.0-37.0); MEAN PLATELET VOLUME 9.7 fl (9.6-12.3); MONO # 0.9 10*3/uL (0.1-1.0); MONO % 7.3 % (3.0-9.0); NEUT # 8.7 10*3/uL (2.3-7.9); PLATELET COUNT AUTOMATED 251 10*3/uL (130-400); RED BLOOD COUNT 5.23 10*6/uL (4.50-5.90); RED CELL DISTRI WIDTH 12.4 % (0-14.5); WHITE BLOOD COUNT 11.8 10*3/uL (4.8-10.8)
[2019-05-12 06:35] LABS: ALBUMIN 3.7 gm/dl (3.1-4.5); BUN 8 mg/dl (7-24); CHLORIDE 107 mmol/L (98-107); POTASSIUM 3.5 mmol/L (3.5-5.1); SODIUM 141 mmol/L (136-145)
[2019-05-12 06:42] LABS: ALKALINE PHOSPHATASE 60 U/L (45-117); CHOLESTEROL 152 mg/dL (<200); FREE T4 1.05 ng/dl (0.76-1.46); HDL CHOLESTEROL 48 mg/dl (40-60); LDL CHOLESTEROL 85 mg/dL (9-159); PHOSPHOROUS 2.8 mg/dL (2.5-4.9); SGOT/AST 17 IU/L (3-35); SGPT/ALT 20 U/L (12-78); THYROID STIM HORMONE (HS) 0.653 uIU/ml (0.358-4.75); TOTAL PROTEIN 7.4 gm/dL (6.4-8.2); TRIGLYCERIDES 97 mg/dl (<150); VLDL CHOLESTEROL 19 mg/dL (6-40)
[2019-05-12 06:52] LABS: ACT PARTIAL THROMBO TIME 29.2 SECONDS (20.0-32.1)
[2019-05-12 08:14] LABS: VITAMIN D, 25-HYDROXY 28.3 ng/mL (30-100)
--- NOTE | 2019-05-12 08:15 | NUR ---
Admissions Representative in to talk to patient. Patient states lives at home with his girlfriend. There are basement steps in the home. Physician: no family physician due to no insurance since January when he was laid off [facility] Home health services: none Patient's level of ADLs: INDEPENDENT Patient has working utilities: yes DME: none Follow-up physician's appointment after d/c: will be made by the hospitalist nurse director upon discharge Does patient want to access PORTAL?: no Discharge plan discussed with patient. He lives at home with his girlfriend. He is independent in his ADLs and ambulation. Discussed home health care services and he denies any home needs at this time. Discussed his hospital stay bill and informed a lady by the name of Nancy from [employer] will be up to talk to him about his self pay status. Discussed medications on discharge and he states he has $0 in the bank and will not be able to afford any medications. Discussed the [facility] program if needed and he verbalized an understanding. He states his girlfriend is unable to help due to her having her own problems. When medically stable he will be discharged to home. He states his girlfriend will provide transportation on discharge. JESUS PRESLEY
--- NOTE | 2019-05-12 12:04 | NUR ---
Nutritional Support Services Note: Pt is npo at this time due to abdominal pain. States he had vomited numerous times yesterday. Will follow for advancement of po intake. Ht.6' Wt.207# Chelsie Sosa Rdn Ld
--- NOTE | 2019-05-12 14:45 | NUR ---
Surgery here to pharmacy picking technician pt to take to OR for EGD.
--- NOTE | 2019-05-12 17:30 | NUR ---
Returned back to floor from OR.
--- NOTE | 2019-05-12 18:58 | NUR ---
Pt had light on requesting pain medication. States stomach is hurting. Pt is crying and rocking back and forth sitting on bed. Notified pt that tylenol is what he has ordered at this time that other medications were discontinued. Pt states he can't take anything by mouth. States that his stomach is too inflamed and it is going to make him sick. Refused tylenol at this time.
[2019-05-13] VITALS: BP 149/85
[2019-05-13 06:59] LABS: BASO # 0.1 10*3/uL (0.0-0.1); BASO % 0.7 % (0.0-1.0); EOS % 0.2 % (1.0-4.0); HEMATOCRIT 46.5 % (42.0-52.0); HEMOGLOBIN 15.9 g/dl (14.0-18.0); LYMPH % 23.6 % (27.0-41.0); MEAN CELL VOLUME 89.8 fl (80.0-94.0); MEAN CORPUSCULAR HGB 30.7 pg (27.0-31.0); MEAN CORPUSCULAR HGB CONC 34.2 g/dl (33.0-37.0); MEAN PLATELET VOLUME 9.6 fl (9.6-12.3); MONO # 0.5 10*3/uL (0.1-1.0); MONO % 6.1 % (3.0-9.0); NEUT # 5.9 10*3/uL (2.3-7.9); NEUT % 69.2 % (47.0-73.0); PLATELET COUNT AUTOMATED 231 10*3/uL (130-400); RED BLOOD COUNT 5.18 10*6/uL (4.50-5.90); RED CELL DISTRI WIDTH 12.2 % (0-14.5); WHITE BLOOD COUNT 8.6 10*3/uL (4.8-10.8)
[2019-05-13 08:00] VITALS: BP 147/99
--- NOTE | 2019-05-13 08:00 | NUR ---
IN TO ROOM, PATIENT CRYING AND ROCKING ON BED. STATES HE HAS STOMACHE PAIN. TYLENOL OFFERED AT THIS TIME. PT DECLINES. NO SOB NOTED. RESPIRATIONS EASY, REGULAR. BED IN LOWEST LOCKED POSITION AND CALL LIGHT WITHIN REACH.
--- NOTE | 2019-05-13 11:00 | NUR ---
DR ACUNA NOTIFIED THAT PATIENT STATES HE IS IN PAIN AND IS CRYING.
[2019-05-13 12:00] VITALS: BP 138/98
--- NOTE | 2019-05-13 12:00 | NUR ---
PATIENT SLEEPING IN BED. BED IN LOWEST LOCKED POSITION AND CALL LIGHT WITHIN REACH.
--- NOTE | 2019-05-13 13:40 | NUR ---
PT COMPLAINS OF ABDOMINAL PAIN. PRN DILAUDID ADMINISTERED AT THIS TIME. WILL MONITOR FOR EFFECTIVENESS.
--- NOTE | 2019-05-13 15:00 | NUR ---
PT STATES PAIN MEDICATION "HELPED A LITTLE". WILL CONTINUE TO MONITOR.
[2019-05-13 16:00] VITALS: BP 153/68
[2019-05-13 20:00] VITALS: BP 126/82
[2019-05-14] VITALS: BP 128/77
--- NOTE | 2019-05-14 00:49 | NUR ---
PT TEARFUL ON ENTRY TO ROOM. STATES THAT HE "IS IN SO MUCH PAIN". WHEN ASKED WHAT TYPE OF PAIN HE IS HAVING HE STATES "I HAVE ULCERS" AND RATED IT AN 8/10 PAIN. DILAUDID ADMINISTERED. WILL CONTINUE TO MONITOR.
--- NOTE | 2019-05-14 02:05 | NUR ---
PT STATES DILAUDID WAS EFFECTIVE.
--- NOTE | 2019-05-14 06:26 | NUR ---
Hep Lock discontinued to right arm. Catheter was kinked upon removal. Site asymptomatic. Pressure applied. Sterile dressing applied. SUDHAKAR RODRÍGUEZ
--- NOTE | 2019-05-14 06:27 | NUR ---
IV started right forearm with #22 protective cath after 2 attempts. Site prepped with Chloroprep. Sterile dressing applied. Patient tolerated procedure well. IV infusing at 100 cc/hr. SUDHAKAR RODRÍGUEZ
--- NOTE | 2019-05-14 06:29 | NUR ---
IV started left forearm with #22 protective cath after 2 attempts. Site prepped with Chloroprep. Sterile dressing applied. Patient tolerated procedure well. IV infusing at 100 cc/hr. SUDHAKAR RODRÍGUEZ
[2019-05-14 08:00] VITALS: BP 120/71
[2019-05-14 12:00] VITALS: BP 133/83
[2019-05-14 16:00] VITALS: BP 136/87
--- NOTE | 2019-05-14 19:30 | NUR ---
PT AWAKE IN BED. DENIES ANY NEEDS AT THIS TIME. WILL MONITOR. CALL LIGHT IN REACH.
[2019-05-14 20:00] VITALS: BP 120/72
[2019-05-15] VITALS: BP 122/68
--- NOTE | 2019-05-15 07:35 | NUR ---
REPORT RECEIVED. PT SLEEPING. NO S/S OF DISTRESS CALL LIGHT IN REACH.
[2019-05-15 08:00] VITALS: BP 119/78
[2019-05-15] MEDS ORDERED: CIPRO500 MG PO (10:28)
[2019-05-15] MEDS ORDERED: NEXIUM40 MG PO (10:28)
[2019-05-15] MEDS ORDERED: FLAGYL500 MG PO (10:28)
--- NOTE | 2019-05-15 14:16 | NUR ---
Discharge instructions reviewed with patient/family. Patient receptive and verbalizes understanding. Follow-up care arranged. Written instructions given to patient/family. PONCHO KELLY
== END 2019-05-15 14:16 | disposition home or self-care (01) | DRG 871 ==
LOC: ED 13:31 → EDHOLD 17:42 → 5E 17:42
PROVIDERS: Internal Medicine; Nurse Practitioner Family; ADMIT Internal Medicine
PROC: 0DB68ZX Excision of Stomach, Via Natural or Artificial Opening Endoscopic, Diagnostic (ICD-10-PCS; principal; 2019-05-12)
DX: A41.9 Sepsis, unspecified organism (principal); N17.0 Acute kidney failure with tubular necrosis; K22.11 Ulcer of esophagus with bleeding; E87.2 Acidosis; E86.0 Dehydration; K52.9 Noninfective gastroenteritis and colitis, unspecified; K29.70 Gastritis, unspecified, without bleeding; K44.9 Diaphragmatic hernia without obstruction or gangrene; E83.52 Hypercalcemia; K25.9 Gastric ulcer, unspecified as acute or chronic, without hemorrhage or perforation; R65.20 Severe sepsis without septic shock; F17.210 Nicotine dependence, cigarettes, uncomplicated; F12.90 Cannabis use, unspecified, uncomplicated; K21.9 Gastro-esophageal reflux disease without esophagitis; E66.9 Obesity, unspecified; Z68.28 Body mass index [BMI] 28.0-28.9, adult; Z71.6 Tobacco abuse counseling; Z80.0 Family history of malignant neoplasm of digestive organs; Z83.2 Family history of diseases of the blood and blood-forming organs and certain disorders involving the immune mechanism

== ENCOUNTER 2019-07-06 08:18 | Inpatient (IN) | payer SELFPAY ==
[~2019-07-06] VITALS: Ht 185.4 cm; Wt 86.4 kg
[2019-07-06] VITALS (7 sets, daily range): BP systolic 105–136; BP diastolic 57–106
[~2019-07-06 08:18] MED LIST changes: +CIPRO500 MG PO; +FLAGYL500 MG PO
[2019-07-06 08:48] LABS: BASO # 0.1 10*3/uL (0.0-0.1); EOS # 0.1 10*3/uL (0.0-0.4); EOS % 1.2 % (1.0-4.0); HEMATOCRIT 51.1 % (42.0-52.0); LYMPH # 1.9 10*3/uL (1.3-4.4); LYMPH % 22.7 % (27.0-41.0); MEAN CELL VOLUME 90.4 fl (80.0-94.0); MEAN CORPUSCULAR HGB 31.3 pg (27.0-31.0); MEAN CORPUSCULAR HGB CONC 34.6 g/dl (33.0-37.0); MEAN PLATELET VOLUME 9.6 fl (9.6-12.3); MONO # 0.6 10*3/uL (0.1-1.0); MONO % 7.1 % (3.0-9.0); NEUT # 5.7 10*3/uL (2.3-7.9); NEUT % 67.8 % (47.0-73.0); PLATELET COUNT AUTOMATED 239 10*3/uL (130-400); RED BLOOD COUNT 5.65 10*6/uL (4.50-5.90); RED CELL DISTRI WIDTH 12.3 % (0-14.5); WHITE BLOOD COUNT 8.4 10*3/uL (4.8-10.8)
[2019-07-06 09:02] LABS: ALBUMIN 4.1 gm/dl (3.1-4.5); ALKALINE PHOSPHATASE 74 U/L (45-117); BUN 12 mg/dl (7-24); CHLORIDE 104 mmol/L (98-107); CREATININE 1.23 mg/dL (0.70-1.30); LIPASE 70 U/L (73-393); POTASSIUM 3.2 mmol/L (3.5-5.1); SGOT/AST 23 IU/L (3-35); SGPT/ALT 21 U/L (12-78); SODIUM 137 mmol/L (136-145); TOTAL PROTEIN 8.6 gm/dL (6.4-8.2)
--- NOTE | 2019-07-06 09:07 | NUR ---
PT VERY UNCOMFORTABLE. PAIN IS STILL A 10 ON A SCALE OF 1-10. N/V STILL PRESENT. [employer] INTACT. CALL LIGHT IN REACH. PT REFUSING TO GET XRAY OR EKG UNTIL HE CAN CALM DOWN.
--- NOTE | 2019-07-06 10:31 | NUR ---
PT RESTING COMFORTABLY. STILL UNABLE TO GIVE A URINE SAMPLE. REFUSES A CATH. [employer] INTACT. CALL LIGHT WITHIN REACH.
--- NOTE | 2019-07-06 10:52 | NUR ---
PT DENIES PAIN AND N/V AT THIS TIME. RESTING COMFORTABLY. WILL CONT TO MONITOR. [employer] INTACT. CALL LIGHT WITHIN REACH.
--- NOTE | 2019-07-06 12:14 | NUR ---
PT RESTING IN BED. DENIES N/V AND PAIN. STILL HAS NOT URINATED. [facility]AF[employer] INTACT. CALL LIGHT IN REACH.
--- NOTE | 2019-07-06 13:40 | NUR ---
IV NOT WORKING. REMOVED AND ATTEMPTED TO START ANOTHER ONE WITH NO SUCCESS. WILL HAVE SOMEONE FOLLOW UP.
--- NOTE | 2019-07-06 14:15 | NUR ---
Time: 1414 A 44 year old male admitted to 4E under services of AMARI MARTINS DO. Pt. arrived via stretcher from ER. Chief complaint: abdominal pain nausea and vomiting. JOYCE MAS
--- NOTE | 2019-07-06 14:41 | NUR ---
PT refused SCD's. Stating he does not want to wear anything that is going to make him uncomfortable or that would disturb his sleeping.
--- NOTE | 2019-07-06 14:57 | NUR ---
Dr. Palma notified that pt is refusing to take oral CT prep. States to do ct without oral prep. Notified Steff in CT dept.
--- NOTE | 2019-07-06 15:26 | NUR ---
Taken off floor for CT.
--- NOTE | 2019-07-06 15:43 | NUR ---
Received call from Latoya in [place]. States that she injected pt and started to do scan and pt stated he was going to vomit. She states pt flipped out and climbed out of scanner. States pt never vomited. States test was essentially useless.
--- NOTE | 2019-07-06 15:48 | NUR ---
Dr. Palam notified of what was reported to me by CT,
--- NOTE | 2019-07-06 16:04 | NUR ---
Medicated with morphine iv per prn order for complaints of left lower quad abdominal pain. Zofran given per prn order for nausea. I asked pt if he had morphine before. He states he had. States it usually works after 2-3 shots. States he finds dilaudid more effective, states it usally works after 2 shots.
--- NOTE | 2019-07-06 16:19 | NUR ---
Pt put call light on states that he is still in pain after morphine was given.
--- NOTE | 2019-07-06 17:31 | NUR ---
Currently sleeping. No signs of pain or nausea noted.
--- NOTE | 2019-07-06 20:41 | NUR ---
PATIENT SLEEPING, NO SIGNS IF DISTRESS. RESPIRATIONS EASY, NON LABORED. WILL CONTINUE TO MONITOR.
--- NOTE | 2019-07-06 23:38 | NUR ---
PATIENT STILL SLEEPING. NO SIGNS OF DISTRESS. WILL CONTINUE TO MONITOR.
[2019-07-07] VITALS: BP 107/66
--- NOTE | 2019-07-07 03:21 | NUR ---
PATIENT SLEEPING, NO SIGNS OF DISTRESS. RESPIRATIONS EASY,NON LABORED. BED IN LOWEST POSITION,CALL LIGHT WITHIN REACH. WILL CONTINUE TO MONITOR.
--- NOTE | 2019-07-07 05:20 | NUR ---
PATIENT IV INFLITRATED. IV TAKEN OUT. NEW IV STARTED IN PATIENTS RIGHT HAND ON FIRST ATTEMPT. IV FLUIDS RESTARTED.
--- NOTE | 2019-07-07 05:31 | NUR ---
PATIENT UPSET HE IS NPO FOR ULTRASOUND OF GALLBLADDER. STATES HE HAS NO GALLBLADDER PROBLEMS. THIS HOSPITAL JUST WANTS TO MAKE MONEY. STATED HE COULD REFUSE. STATES HE CANT REFUSE WE WILL KICK HIM OUT.
[2019-07-07 06:01] LABS: BASO # 0.1 10*3/uL (0.0-0.1); EOS # 0.2 10*3/uL (0.0-0.4); EOS % 3.1 % (1.0-4.0); LYMPH # 3.1 10*3/uL (1.3-4.4); LYMPH % 41.6 % (27.0-41.0); MEAN CELL VOLUME 91.4 fl (80.0-94.0); MEAN CORPUSCULAR HGB 31.1 pg (27.0-31.0); MEAN PLATELET VOLUME 9.7 fl (9.6-12.3); MONO # 0.5 10*3/uL (0.1-1.0); MONO % 7.2 % (3.0-9.0); NEUT # 3.4 10*3/uL (2.3-7.9); NEUT % 46.8 % (47.0-73.0); PLATELET COUNT AUTOMATED 211 10*3/uL (130-400); RED BLOOD COUNT 5.14 10*6/uL (4.50-5.90); RED CELL DISTRI WIDTH 12.4 % (0-14.5); WHITE BLOOD COUNT 7.3 10*3/uL (4.8-10.8)
--- NOTE | 2019-07-07 06:03 | NUR ---
PATIENT REQUESTING TO GET A SHOWER, IV FLUIDS STOPPED, IV HEPLOCKED AND WRAPPED.
[2019-07-07 06:30] LABS: BUN 7 mg/dl (7-24); CHLORIDE 109 mmol/L (98-107); CREATININE 0.97 mg/dL (0.70-1.30); POTASSIUM 3.6 mmol/L (3.5-5.1); SODIUM 140 mmol/L (136-145)
--- NOTE | 2019-07-07 07:00 | NUR ---
REPORT RECEIVED. PT LYING IN BED AT THIS TIME. NO S/S OF DISTRESS. IV FLUIDS INFUSING WITHOUT DIFFICULTY. CALL LIGHT IN REACH
[2019-07-07 08:00] VITALS: BP 115/60
--- NOTE | 2019-07-07 09:27 | NUR ---
Pace Analyst in to talk to patient. Patient states lives at home with girlfriend. There are 2 steps in the home. Physician: none at present [facility] Home health services: none Patient's level of ADLs: INDEPENDENT Patient has working utilities: all working DME: none Follow-up physician's appointment after d/c: will be made by hospitalist director with doctor of patient's choice Does patient want to access PORTAL?: no Discharge plan discussed with patient, he lives at home with girlfriend, he states he is independent in adls and ambulation, he states he will return home when medically stable and denies any home needs, discussed with him not having any insurance and Nancy from [employer] will given help him fill out paperwork to help with the hospital bill. he states he also uses [facility] for low cost prescriptions, case management will follow for any other home needs. ITZ GONZALEZ
[2019-07-07 12:00] VITALS: BP 111/58
[2019-07-07] MEDS ORDERED: ZOFRAN4 MG PO (14:11)
--- NOTE | 2019-07-07 14:34 | NUR ---
Discharge instructions reviewed with patient/family. Patient receptive and verbalizes understanding. Follow-up care arranged. Written instructions given to patient/family. PONCHO KELLY
== END 2019-07-07 14:36 | disposition home or self-care (01) | DRG 380 ==
LOC: ED 08:18 → EDHOLD 12:47 → 4E 12:47
PROVIDERS: Emergency Medicine; Internal Medicine; ADMIT Internal Medicine
DX: K22.11 Ulcer of esophagus with bleeding (principal); N17.0 Acute kidney failure with tubular necrosis; E87.2 Acidosis; K29.51 Unspecified chronic gastritis with bleeding; K25.7 Chronic gastric ulcer without hemorrhage or perforation; K21.0 Gastro-esophageal reflux disease with esophagitis; E86.0 Dehydration; F17.210 Nicotine dependence, cigarettes, uncomplicated; E87.6 Hypokalemia; R73.9 Hyperglycemia, unspecified; F12.90 Cannabis use, unspecified, uncomplicated; F19.90 Other psychoactive substance use, unspecified, uncomplicated; E55.9 Vitamin D deficiency, unspecified; E66.9 Obesity, unspecified; Z53.29 Procedure and treatment not carried out because of patient's decision for other reasons; Z68.27 Body mass index [BMI] 27.0-27.9, adult; Z80.0 Family history of malignant neoplasm of digestive organs; Z79.899 Other long term (current) drug therapy; Z83.2 Family history of diseases of the blood and blood-forming organs and certain disorders involving the immune mechanism

== ENCOUNTER 2021-01-16 18:22 | Emergency (ER) | payer BC ==
[~2021-01-16] VITALS: Ht 182.8 cm; Wt 122.5 kg
[~2021-01-16 18:22] MED LIST changes: +ZOFRAN4 MG PO
[2021-01-16 20:04] LABS: ALBUMIN 4.3 gm/dl (3.1-4.5); ALKALINE PHOSPHATASE 67 U/L (45-117); BUN 13 mg/dl (7-24); CHLORIDE 105 mmol/L (98-107); CREATININE 1.24 mg/dL (0.70-1.30); LIPASE 67 U/L (73-393); POTASSIUM 3.8 mmol/L (3.5-5.1); SGOT/AST 28 IU/L (3-35); SGPT/ALT 27 U/L (12-78); SODIUM 141 mmol/L (136-145); TOTAL PROTEIN 8.5 gm/dL (6.4-8.2)
[2021-01-16 20:19] LABS: BASO # 0.1 10*3/uL (0.0-0.1); BASO % 0.6 % (0.0-1.0); EOS % 0.2 % (1.0-4.0); HEMATOCRIT 47.4 % (42.0-52.0); LYMPH # 0.9 10*3/uL (1.3-4.4); LYMPH % 9.1 % (27.0-41.0); MEAN CELL VOLUME 90.5 fl (80.0-94.0); MEAN CORPUSCULAR HGB 32.1 pg (27.0-31.0); MEAN CORPUSCULAR HGB CONC 35.4 g/dl (33.0-37.0); MEAN PLATELET VOLUME 9.3 fl (9.6-12.3); MONO # 0.4 10*3/uL (0.1-1.0); MONO % 3.7 % (3.0-9.0); NEUT # 8.7 10*3/uL (2.3-7.9); NEUT % 86.1 % (47.0-73.0); PLATELET COUNT AUTOMATED 231 10*3/uL (130-400); RED BLOOD COUNT 5.24 10*6/uL (4.50-5.90); RED CELL DISTRI WIDTH 11.6 % (0-14.5); WHITE BLOOD COUNT 10.1 10*3/uL (4.8-10.8)
[2021-01-16] MEDS ORDERED: ZOFRAN4 MG PO ×2 (22:35)
== END 2021-01-16 22:45 | disposition home or self-care (01) ==
LOC: ED 18:22
PROVIDERS: Emergency Medicine
DX: R10.9 Unspecified abdominal pain (principal); R11.0 Nausea; F17.200 Nicotine dependence, unspecified, uncomplicated

== ENCOUNTER 2021-01-17 20:33 | Inpatient (IN) | payer BC ==
[~2021-01-17] VITALS: Ht 183 cm; Wt 104.5 kg
[2021-01-17 20:40] VITALS: BP 156/63
[2021-01-17 22:31] LABS: BASO # 0.1 10*3/uL (0.0-0.1); BASO % 0.4 % (0.0-1.0); EOS # 0.1 10*3/uL (0.0-0.4); EOS % 0.3 % (1.0-4.0); HEMATOCRIT 50.5 % (42.0-52.0); LYMPH # 2.5 10*3/uL (1.3-4.4); LYMPH % 15.3 % (27.0-41.0); MEAN CELL VOLUME 89.5 fl (80.0-94.0); MEAN CORPUSCULAR HGB CONC 34.7 g/dl (33.0-37.0); MEAN PLATELET VOLUME 8.7 fl (9.6-12.3); MONO # 1.2 10*3/uL (0.1-1.0); MONO % 7.4 % (3.0-9.0); NEUT # 12.3 10*3/uL (2.3-7.9); NEUT % 76.2 % (47.0-73.0); PLATELET COUNT AUTOMATED 271 10*3/uL (130-400); RED BLOOD COUNT 5.64 10*6/uL (4.50-5.90); RED CELL DISTRI WIDTH 11.8 % (0-14.5); WHITE BLOOD COUNT 16.2 10*3/uL (4.8-10.8)
[2021-01-17 22:40] VITALS: BP 157/101
[2021-01-17 22:46] LABS: ALBUMIN 4.4 gm/dl (3.1-4.5); ALKALINE PHOSPHATASE 68 U/L (45-117); BUN 10 mg/dl (7-24); CHLORIDE 102 mmol/L (98-107); CREATININE 1.08 mg/dL (0.70-1.30); LIPASE 85 U/L (73-393); POTASSIUM 3.4 mmol/L (3.5-5.1); SGOT/AST 31 IU/L (3-35); SGPT/ALT 26 U/L (12-78); SODIUM 134 mmol/L (136-145); TOTAL PROTEIN 8.7 gm/dL (6.4-8.2)
[2021-01-17 23:09] VITALS: BP 127/84
[2021-01-17 23:39] VITALS: BP 116/80
[2021-01-18] VITALS (9 sets, daily range): BP systolic 103–124; BP diastolic 59–84
[2021-01-18 04:48] LABS: BASO # 0.1 10*3/uL (0.0-0.1); BASO % 0.7 % (0.0-1.0); EOS # 0.1 10*3/uL (0.0-0.4); EOS % 0.8 % (1.0-4.0); HEMATOCRIT 45.9 % (42.0-52.0); LYMPH # 2.6 10*3/uL (1.3-4.4); MEAN CELL VOLUME 91.6 fl (80.0-94.0); MEAN CORPUSCULAR HGB 31.7 pg (27.0-31.0); MEAN CORPUSCULAR HGB CONC 34.6 g/dl (33.0-37.0); MEAN PLATELET VOLUME 9.4 fl (9.6-12.3); MONO # 0.9 10*3/uL (0.1-1.0); MONO % 8.4 % (3.0-9.0); NEUT # 6.8 10*3/uL (2.3-7.9); NEUT % 64.8 % (47.0-73.0); PLATELET COUNT AUTOMATED 224 10*3/uL (130-400); RED BLOOD COUNT 5.01 10*6/uL (4.50-5.90); RED CELL DISTRI WIDTH 11.8 % (0-14.5); WHITE BLOOD COUNT 10.5 10*3/uL (4.8-10.8)
[2021-01-18 05:06] LABS: ALBUMIN 3.6 gm/dl (3.1-4.5); BUN 10 mg/dl (7-24); CHLORIDE 106 mmol/L (98-107); CREATININE 0.82 mg/dL (0.70-1.30); POTASSIUM 3.5 mmol/L (3.5-5.1); SGOT/AST 23 IU/L (3-35); SGPT/ALT 24 U/L (12-78); SODIUM 137 mmol/L (136-145)
[2021-01-18 05:08] LABS: ALKALINE PHOSPHATASE 57 U/L (45-117); TOTAL PROTEIN 7.1 gm/dL (6.4-8.2)
[2021-01-19] VITALS: BP 127/73
[2021-01-19 06:11] LABS: BASO # 0.1 10*3/uL (0.0-0.1); EOS # 0.2 10*3/uL (0.0-0.4); EOS % 1.6 % (1.0-4.0); HEMATOCRIT 44.8 % (42.0-52.0); LYMPH % 21.1 % (27.0-41.0); MEAN CELL VOLUME 91.6 fl (80.0-94.0); MEAN CORPUSCULAR HGB 31.3 pg (27.0-31.0); MEAN CORPUSCULAR HGB CONC 34.2 g/dl (33.0-37.0); MEAN PLATELET VOLUME 9.3 fl (9.6-12.3); MONO # 0.7 10*3/uL (0.1-1.0); MONO % 7.2 % (3.0-9.0); NEUT # 6.5 10*3/uL (2.3-7.9); NEUT % 68.9 % (47.0-73.0); PLATELET COUNT AUTOMATED 199 10*3/uL (130-400); RED BLOOD COUNT 4.89 10*6/uL (4.50-5.90); RED CELL DISTRI WIDTH 11.6 % (0-14.5); WHITE BLOOD COUNT 9.4 10*3/uL (4.8-10.8)
[2021-01-19 06:26] LABS: BUN 11 mg/dl (7-24); CHLORIDE 105 mmol/L (98-107); POTASSIUM 3.4 mmol/L (3.5-5.1); SODIUM 138 mmol/L (136-145)
[2021-01-19 06:27] LABS: CREATININE 0.92 mg/dL (0.70-1.30)
[2021-01-19 08:00] VITALS: BP 121/57
[2021-01-19 12:00] VITALS: BP 153/97
[2021-01-19 16:00] VITALS: BP 146/72
== END 2021-01-19 19:29 | disposition left against medical advice (07) | DRG 872 ==
LOC: ED 20:33 → EDHOLD 22:54 → 4E 01-18 07:03
PROVIDERS: Hospitalist; Internal Medicine; Physician Assistant; ADMIT Student in an Organized Health Care Education/Training Program; ATTEND Student in an Organized Health Care Education/Training Program
DX: A41.9 Sepsis, unspecified organism (principal); R17 Unspecified jaundice; E87.1 Hypo-osmolality and hyponatremia; K21.9 Gastro-esophageal reflux disease without esophagitis; E55.9 Vitamin D deficiency, unspecified; R73.9 Hyperglycemia, unspecified; F17.210 Nicotine dependence, cigarettes, uncomplicated; K29.80 Duodenitis without bleeding; Z53.29 Procedure and treatment not carried out because of patient's decision for other reasons; E87.6 Hypokalemia; E80.6 Other disorders of bilirubin metabolism; I16.0 Hypertensive urgency; Z71.6 Tobacco abuse counseling; Z87.11 Personal history of peptic ulcer disease

== ENCOUNTER 2021-01-20 05:22 | Inpatient (IN) | payer BC ==
[2021-01-20] VITALS (13 sets, daily range): BP systolic 107–175; BP diastolic 60–108
[~2021-01-20] VITALS: Ht 182.8 cm
[2021-01-20 06:05] LABS: BASO # 0.1 10*3/uL (0.0-0.1); BASO % 0.9 % (0.0-1.0); EOS # 0.3 10*3/uL (0.0-0.4); EOS % 2.8 % (1.0-4.0); HEMATOCRIT 48.1 % (42.0-52.0); LYMPH # 1.7 10*3/uL (1.3-4.4); MEAN CELL VOLUME 89.4 fl (80.0-94.0); MEAN CORPUSCULAR HGB CONC 35.8 g/dl (33.0-37.0); MEAN PLATELET VOLUME 9.3 fl (9.6-12.3); MONO # 0.7 10*3/uL (0.1-1.0); MONO % 7.7 % (3.0-9.0); NEUT # 6.1 10*3/uL (2.3-7.9); NEUT % 69.4 % (47.0-73.0); PLATELET COUNT AUTOMATED 236 10*3/uL (130-400); RED BLOOD COUNT 5.38 10*6/uL (4.50-5.90); RED CELL DISTRI WIDTH 11.4 % (0-14.5); WHITE BLOOD COUNT 8.8 10*3/uL (4.8-10.8)
[2021-01-20 06:18] LABS: ALBUMIN 3.8 gm/dl (3.1-4.5); ALKALINE PHOSPHATASE 58 U/L (45-117); BUN 11 mg/dl (7-24); CHLORIDE 102 mmol/L (98-107); LIPASE 104 U/L (73-393); POTASSIUM 3.5 mmol/L (3.5-5.1); SGOT/AST 27 IU/L (3-35); SGPT/ALT 27 U/L (12-78); SODIUM 137 mmol/L (136-145); TOTAL PROTEIN 7.6 gm/dL (6.4-8.2)
[2021-01-20 06:23] LABS: INTERNATIONAL NORM RATIO 1.1 (2.0-3.5)
[2021-01-21] VITALS: BP 150/108
[2021-01-21 06:22] LABS: BUN 11 mg/dl (7-24); CHLORIDE 101 mmol/L (98-107); CREATININE 1.05 mg/dL (0.70-1.30); POTASSIUM 3.4 mmol/L (3.5-5.1); SODIUM 137 mmol/L (136-145)
[2021-01-21 06:24] LABS: BASO # 0.1 10*3/uL (0.0-0.1); BASO % 0.8 % (0.0-1.0); EOS # 0.4 10*3/uL (0.0-0.4); EOS % 5.4 % (1.0-4.0); HEMATOCRIT 45.1 % (42.0-52.0); LYMPH # 2.3 10*3/uL (1.3-4.4); LYMPH % 30.7 % (27.0-41.0); MEAN CELL VOLUME 90.4 fl (80.0-94.0); MEAN CORPUSCULAR HGB 31.7 pg (27.0-31.0); MEAN PLATELET VOLUME 9.1 fl (9.6-12.3); MONO # 0.8 10*3/uL (0.1-1.0); MONO % 10.4 % (3.0-9.0); NEUT % 52.4 % (47.0-73.0); PLATELET COUNT AUTOMATED 216 10*3/uL (130-400); RED BLOOD COUNT 4.99 10*6/uL (4.50-5.90); RED CELL DISTRI WIDTH 11.6 % (0-14.5); WHITE BLOOD COUNT 7.6 10*3/uL (4.8-10.8)
[2021-01-21 08:00] VITALS: BP 115/71
[2021-01-21 12:00] VITALS: BP 129/73
[2021-01-21 16:00] VITALS: BP 130/79
[2021-01-21 20:00] VITALS: BP 123/76
[2021-01-22] VITALS: BP 139/91
[2021-01-22 06:30] LABS: BASO # 0.1 10*3/uL (0.0-0.1); EOS # 0.5 10*3/uL (0.0-0.4); EOS % 6.3 % (1.0-4.0); HEMATOCRIT 46.5 % (42.0-52.0); LYMPH # 1.9 10*3/uL (1.3-4.4); LYMPH % 25.4 % (27.0-41.0); MEAN CELL VOLUME 90.5 fl (80.0-94.0); MEAN CORPUSCULAR HGB 31.5 pg (27.0-31.0); MEAN CORPUSCULAR HGB CONC 34.8 g/dl (33.0-37.0); MEAN PLATELET VOLUME 9.3 fl (9.6-12.3); MONO # 0.7 10*3/uL (0.1-1.0); MONO % 9.5 % (3.0-9.0); NEUT # 4.2 10*3/uL (2.3-7.9); NEUT % 57.5 % (47.0-73.0); PLATELET COUNT AUTOMATED 211 10*3/uL (130-400); RED BLOOD COUNT 5.14 10*6/uL (4.50-5.90); RED CELL DISTRI WIDTH 11.6 % (0-14.5); WHITE BLOOD COUNT 7.3 10*3/uL (4.8-10.8)
[2021-01-22 06:35] LABS: BUN 12 mg/dl (7-24); CHLORIDE 101 mmol/L (98-107); CREATININE 1.03 mg/dL (0.70-1.30); POTASSIUM 3.3 mmol/L (3.5-5.1); SODIUM 136 mmol/L (136-145)
[2021-01-22 08:00] VITALS: BP 118/71
[2021-01-22] MEDS ORDERED: CARAFATE1 G1 PO (10:58)
[2021-01-22] MEDS ORDERED: PROTONIX40 MG PO (10:58)
[2021-01-22] MEDS ORDERED: CIPRO500 MG PO (10:58)
[2021-01-22] MEDS ORDERED: METRONIDAZOLE500 M1 PO (10:58)
== END 2021-01-22 14:02 | disposition home or self-care (01) | DRG 872 ==
LOC: ED 05:22 → 4E 06:24 → EDHOLD 06:24 → 4E 07:11
PROVIDERS: Internal Medicine; ADMIT Internal Medicine; ATTEND Internal Medicine
PROC: 0DB58ZX Excision of Esophagus, Via Natural or Artificial Opening Endoscopic, Diagnostic (ICD-10-PCS; principal; 2021-01-20)
PROC: 0DB68ZX Excision of Stomach, Via Natural or Artificial Opening Endoscopic, Diagnostic (ICD-10-PCS; 2021-01-20)
DX: A41.9 Sepsis, unspecified organism (principal); K29.80 Duodenitis without bleeding; K29.70 Gastritis, unspecified, without bleeding; R73.9 Hyperglycemia, unspecified; R00.1 Bradycardia, unspecified; F17.210 Nicotine dependence, cigarettes, uncomplicated; Z71.6 Tobacco abuse counseling; Z76.5 Malingerer [conscious simulation]; E55.9 Vitamin D deficiency, unspecified; K21.00 Gastro-esophageal reflux disease with esophagitis, without bleeding

== ENCOUNTER 2021-08-31 12:15 | Emergency (ER) | payer BC ==
[~2021-08-31] VITALS: Ht 182.8 cm; Wt 95.3 kg
[~2021-08-31 12:15] MED LIST changes: +CARAFATE1 G1 PO; +COMPAZINE10 M1 PO; +COMPAZINE5 M3 PO; +METOCLOPRAMIDE H5 M1 PO; +METRONIDAZOLE500 M1 PO; +VITAMIN D31250 MCG PO; +VITAMIN D350 MC2 PO
[2021-08-31 12:45] LABS: HEMATOCRIT 47.4 % (42.0-52.0); MEAN CELL VOLUME 89.4 fl (80.0-94.0); MEAN CORPUSCULAR HGB 31.9 pg (27.0-31.0); MEAN CORPUSCULAR HGB CONC 35.7 g/dl (33.0-37.0); MEAN PLATELET VOLUME 9.9 fl (9.6-12.3); PLATELET COUNT AUTOMATED 283 10*3/uL (130-400); WHITE BLOOD COUNT 10.7 10*3/uL (4.8-10.8)
[2021-08-31 12:46] LABS: MANUAL DIFF REFLEX YES
[2021-08-31 13:15] LABS: PLATELET SUFFICIENCY NORMAL (NORMAL); TOTAL CELLS COUNTED 100 #CELLS
[2021-08-31 13:28] LABS: BUN 17 mg/dl (7-24); CHLORIDE 105 mmol/L (98-107); CREATININE 1.08 mg/dL (0.70-1.30); POTASSIUM 3.5 mmol/L (3.5-5.1); SODIUM 139 mmol/L (136-145)
[2021-08-31] MEDS ORDERED: REGLAN5 MG PO (14:42)
== END 2021-08-31 15:08 | disposition home or self-care (01) ==
LOC: ED 12:15
PROVIDERS: Internal Medicine
DX: F12.129 Cannabis abuse with intoxication, unspecified (principal)

== ENCOUNTER 2021-09-02 00:47 | Emergency (ER) | payer BC ==
[~2021-09-02] VITALS: Ht 182.8 cm; Wt 95.3 kg
[2021-09-02] MEDS ORDERED: NEXIUM40 MG PO (00:52)
[2021-09-02 01:06] LABS: BASO # 0.1 10*3/uL (0.0-0.1); BASO % 0.7 % (0.0-1.0); EOS # 0.1 10*3/uL (0.0-0.4); EOS % 0.5 % (1.0-4.0); HEMATOCRIT 47.8 % (42.0-52.0); LYMPH # 2.5 10*3/uL (1.3-4.4); LYMPH % 21.9 % (27.0-41.0); MEAN CELL VOLUME 89.3 fl (80.0-94.0); MEAN CORPUSCULAR HGB 31.2 pg (27.0-31.0); MEAN CORPUSCULAR HGB CONC 34.9 g/dl (33.0-37.0); MEAN PLATELET VOLUME 9.2 fl (9.6-12.3); MONO # 0.9 10*3/uL (0.1-1.0); MONO % 7.3 % (3.0-9.0); NEUT # 8.1 10*3/uL (2.3-7.9); NEUT % 69.3 % (47.0-73.0); PLATELET COUNT AUTOMATED 236 10*3/uL (130-400); RED BLOOD COUNT 5.35 10*6/uL (4.50-5.90); WHITE BLOOD COUNT 11.6 10*3/uL (4.8-10.8)
[2021-09-02 01:23] LABS: ALKALINE PHOSPHATASE 64 U/L (45-117); BUN 15 mg/dl (7-24); CHLORIDE 104 mmol/L (98-107); CREATININE 1.02 mg/dL (0.70-1.30); POTASSIUM 3.6 mmol/L (3.5-5.1); SGOT/AST 22 IU/L (3-35); SGPT/ALT 19 U/L (12-78); SODIUM 138 mmol/L (136-145); TOTAL PROTEIN 7.8 gm/dL (6.4-8.2)
== END 2021-09-02 05:55 | disposition home or self-care (01) ==
LOC: ED 00:47
PROVIDERS: Internal Medicine
DX: R10.9 Unspecified abdominal pain (principal); R11.2 Nausea with vomiting, unspecified

== ENCOUNTER 2022-03-05 17:24 | Emergency (ER) | payer BC ==
[~2022-03-05] VITALS: Wt 96.2 kg
[~2022-03-05 17:24] MED LIST changes: +METOCLOPRAMIDE10 M1 PO
[2022-03-05 18:26] LABS: HEMATOCRIT 46.6 % (42.0-52.0); MEAN CELL VOLUME 89.4 fl (80.0-94.0); MEAN CORPUSCULAR HGB 32.2 pg (27.0-31.0); MEAN CORPUSCULAR HGB CONC 36.1 g/dl (33.0-37.0); MEAN PLATELET VOLUME 9.3 fl (9.6-12.3); PLATELET COUNT AUTOMATED 233 10*3/uL (130-400); RED BLOOD COUNT 5.21 10*6/uL (4.50-5.90); RED CELL DISTRI WIDTH 11.9 % (0-14.5); WHITE BLOOD COUNT 11.3 10*3/uL (4.8-10.8)
[2022-03-05 18:38] LABS: ACT PARTIAL THROMBO TIME 25.4 SECONDS (20.0-32.1)
[2022-03-05 18:43] LABS: ALKALINE PHOSPHATASE 61 U/L (46-116); BUN 10 mg/dl (9-23); CHLORIDE 102 mmol/L (98-107); CREATININE 0.88 mg/dL (0.70-1.30); LIPASE 32 U/L (12-53); POTASSIUM 3.6 mmol/L (3.4-5.1); SGPT/ALT 13 U/L (10-49); SODIUM 137 mmol/L (136-145); TOTAL PROTEIN 8.1 gm/dL (6.0-8.0)
[2022-03-05 18:54] LABS: MANUAL DIFF REFLEX YES
[2022-03-05 19:17] LABS: PLATELET SUFFICIENCY NORMAL (NORMAL); TOTAL CELLS COUNTED 100 #CELLS
[2022-03-05] MEDS ORDERED: CARAFATE1 G1 PO (19:35)
== END 2022-03-05 19:59 | disposition home or self-care (01) ==
LOC: ED 17:24
PROVIDERS: Student in an Organized Health Care Education/Training Program
DX: R11.10 Vomiting, unspecified (principal); R10.9 Unspecified abdominal pain; Z88.8 Allergy status to other drugs, medicaments and biological substances

== ENCOUNTER 2022-06-20 00:03 | Emergency (ER) | payer BC ==
[~2022-06-20] VITALS: Ht 185.4 cm; Wt 95.3 kg
[~2022-06-20 00:03] MED LIST changes: +PHENERGAN25 M3 PO
[2022-06-20 00:29] LABS: BASO # 0.1 10*3/uL (0.0-0.1); BASO % 0.7 % (0.0-1.0); EOS # 0.5 10*3/uL (0.0-0.4); EOS % 5.2 % (1.0-4.0); HEMATOCRIT 45.2 % (42.0-52.0); LYMPH # 2.4 10*3/uL (1.3-4.4); LYMPH % 23.3 % (27.0-41.0); MEAN CORPUSCULAR HGB 33.1 pg (27.0-31.0); MEAN CORPUSCULAR HGB CONC 36.7 g/dl (33.0-37.0); MEAN PLATELET VOLUME 8.9 fl (9.6-12.3); MONO # 0.6 10*3/uL (0.1-1.0); MONO % 6.2 % (3.0-9.0); NEUT # 6.5 10*3/uL (2.3-7.9); NEUT % 64.4 % (47.0-73.0); PLATELET COUNT AUTOMATED 222 10*3/uL (130-400); RED BLOOD COUNT 5.02 10*6/uL (4.50-5.90); RED CELL DISTRI WIDTH 11.6 % (0-14.5); WHITE BLOOD COUNT 10.2 10*3/uL (4.8-10.8)
[2022-06-20 00:44] LABS: ALKALINE PHOSPHATASE 53 U/L (46-116); BUN 17 mg/dl (9-23); CHLORIDE 102 mmol/L (98-107); LIPASE 54 U/L (12-53); POTASSIUM 3.6 mmol/L (3.4-5.1); SGPT/ALT 22 U/L (10-49); TOTAL PROTEIN 7.3 gm/dL (6.0-8.0)
== END 2022-06-20 02:51 | disposition home or self-care (01) ==
LOC: ED 00:03
PROVIDERS: Emergency Medicine
DX: R11.2 Nausea with vomiting, unspecified (principal); R10.13 Epigastric pain; K21.9 Gastro-esophageal reflux disease without esophagitis; Z88.8 Allergy status to other drugs, medicaments and biological substances; Z90.89 Acquired absence of other organs; Z98.890 Other specified postprocedural states; F12.90 Cannabis use, unspecified, uncomplicated; Z72.0 Tobacco use

== ENCOUNTER 2022-06-21 19:08 | Emergency (ER) | payer BC ==
[~2022-06-21] VITALS: Wt 95.3 kg
[2022-06-21 20:21] LABS: BASO # 0.1 10*3/uL (0.0-0.1); BASO % 0.7 % (0.0-1.0); EOS # 0.3 10*3/uL (0.0-0.4); EOS % 2.8 % (1.0-4.0); HEMATOCRIT 44.2 % (42.0-52.0); LYMPH # 1.1 10*3/uL (1.3-4.4); LYMPH % 10.2 % (27.0-41.0); MEAN CELL VOLUME 90.4 fl (80.0-94.0); MEAN CORPUSCULAR HGB 32.5 pg (27.0-31.0); MEAN PLATELET VOLUME 9.2 fl (9.6-12.3); MONO # 0.5 10*3/uL (0.1-1.0); MONO % 4.5 % (3.0-9.0); NEUT # 8.7 10*3/uL (2.3-7.9); NEUT % 81.5 % (47.0-73.0); PLATELET COUNT AUTOMATED 211 10*3/uL (130-400); RED BLOOD COUNT 4.89 10*6/uL (4.50-5.90); RED CELL DISTRI WIDTH 11.6 % (0-14.5); WHITE BLOOD COUNT 10.6 10*3/uL (4.8-10.8)
[2022-06-21 20:36] LABS: ALKALINE PHOSPHATASE 49 U/L (46-116); BUN 12 mg/dl (9-23); CHLORIDE 104 mmol/L (98-107); LIPASE 36 U/L (12-53); POTASSIUM 3.4 mmol/L (3.4-5.1); SGPT/ALT 16 U/L (10-49); TOTAL PROTEIN 7.3 gm/dL (6.0-8.0)
== END 2022-06-21 23:39 | disposition left against medical advice (07) ==
LOC: ED 19:08
PROVIDERS: Emergency Medicine
DX: R10.9 Unspecified abdominal pain (principal); R11.10 Vomiting, unspecified; R73.9 Hyperglycemia, unspecified; E87.1 Hypo-osmolality and hyponatremia; K21.9 Gastro-esophageal reflux disease without esophagitis; Z88.8 Allergy status to other drugs, medicaments and biological substances; Z90.89 Acquired absence of other organs; Z98.890 Other specified postprocedural states; F12.90 Cannabis use, unspecified, uncomplicated; Z72.0 Tobacco use

== ENCOUNTER 2022-07-07 09:55 | Emergency (ER) | payer BC ==
[~2022-07-07] VITALS: Ht 182.8 cm; Wt 91.6 kg
== END 2022-07-07 14:19 | disposition left against medical advice (07) ==
LOC: ED 09:55
DX: N50.811 Right testicular pain (principal); K21.9 Gastro-esophageal reflux disease without esophagitis; Z88.8 Allergy status to other drugs, medicaments and biological substances; Z90.89 Acquired absence of other organs; Z98.890 Other specified postprocedural states; F12.90 Cannabis use, unspecified, uncomplicated; Z72.0 Tobacco use

== ENCOUNTER 2022-10-13 11:27 | Emergency (ER) | payer BC ==
[~2022-10-13] VITALS: Wt 86.2 kg
[~2022-10-13 11:27] MED LIST changes: +LEXAPRO10 MG PO
[2022-10-13 12:12] LABS: BASO % 0.4 % (0.0-1.0); HEMATOCRIT 46.3 % (42.0-52.0); LYMPH # 0.8 10*3/uL (1.3-4.4); MEAN CELL VOLUME 90.8 fl (80.0-94.0); MEAN CORPUSCULAR HGB CONC 35.2 g/dl (33.0-37.0); MEAN PLATELET VOLUME 8.8 fl (9.6-12.3); MONO # 0.3 10*3/uL (0.1-1.0); NEUT # 8.6 10*3/uL (2.3-7.9); NEUT % 88.4 % (47.0-73.0); PLATELET COUNT AUTOMATED 238 10*3/uL (130-400); WHITE BLOOD COUNT 9.7 10*3/uL (4.8-10.8)
[2022-10-13 12:36] LABS: ALKALINE PHOSPHATASE 63 U/L (46-116); BUN 10 mg/dl (9-23); CHLORIDE 101 mmol/L (98-107); LIPASE 40 U/L (12-53); POTASSIUM 3.6 mmol/L (3.4-5.1); SGPT/ALT 15 U/L (10-49); TOTAL PROTEIN 7.8 gm/dL (6.0-8.0)
== END 2022-10-13 16:01 | disposition home or self-care (01) ==
LOC: ED 11:27
PROVIDERS: Emergency Medicine
DX: K21.9 Gastro-esophageal reflux disease without esophagitis (principal); R11.10 Vomiting, unspecified; Z88.8 Allergy status to other drugs, medicaments and biological substances; Z90.89 Acquired absence of other organs; Z90.49 Acquired absence of other specified parts of digestive tract; Z98.890 Other specified postprocedural states; F12.90 Cannabis use, unspecified, uncomplicated; Z72.0 Tobacco use

== ENCOUNTER 2022-11-12 13:00 | Emergency (ER) | payer BC ==
[~2022-11-12] VITALS: Wt 86.2 kg
[2022-11-12 14:02] LABS: HEMATOCRIT 46.1 % (42.0-52.0); MEAN CELL VOLUME 93.1 fl (80.0-94.0); MEAN CORPUSCULAR HGB 32.3 pg (27.0-31.0); MEAN CORPUSCULAR HGB CONC 34.7 g/dl (33.0-37.0); MEAN PLATELET VOLUME 9.1 fl (9.6-12.3); PLATELET COUNT AUTOMATED 207 10*3/uL (130-400); RED BLOOD COUNT 4.95 10*6/uL (4.50-5.90); RED CELL DISTRI WIDTH 12.1 % (0-14.5); WHITE BLOOD COUNT 9.8 10*3/uL (4.8-10.8)
[2022-11-12 14:04] LABS: MANUAL DIFF REFLEX YES
[2022-11-12 14:24] LABS: ALKALINE PHOSPHATASE 58 U/L (46-116); BUN 10 mg/dl (9-23); CHLORIDE 106 mmol/L (98-107); LIPASE 29 U/L (12-53); POTASSIUM 3.6 mmol/L (3.4-5.1); SGPT/ALT 11 U/L (10-49); TOTAL PROTEIN 7.9 gm/dL (6.0-8.0)
[2022-11-12 14:33] LABS: TOTAL CELLS COUNTED 100 #CELLS
[2022-11-12 14:34] LABS: PLATELET SUFFICIENCY NORMAL (NORMAL)
== END 2022-11-12 18:43 | disposition home or self-care (01) ==
LOC: ED 13:00
PROVIDERS: Emergency Medicine
DX: R10.9 Unspecified abdominal pain (principal); R11.2 Nausea with vomiting, unspecified; K21.9 Gastro-esophageal reflux disease without esophagitis; Z88.8 Allergy status to other drugs, medicaments and biological substances; Z90.89 Acquired absence of other organs; Z90.49 Acquired absence of other specified parts of digestive tract; Z98.890 Other specified postprocedural states; F12.90 Cannabis use, unspecified, uncomplicated; Z72.0 Tobacco use

== ENCOUNTER 2022-11-22 19:14 | Emergency (ER) | payer BC ==
[~2022-11-22] VITALS: Ht 182.8 cm; Wt 81.6 kg
[2022-11-22] MEDS ORDERED: PEPCID AC10 M2 PO (20:17)
== END 2022-11-22 21:32 | disposition home or self-care (01) ==
LOC: ED 19:14
DX: K21.9 Gastro-esophageal reflux disease without esophagitis (principal); J02.9 Acute pharyngitis, unspecified; F17.210 Nicotine dependence, cigarettes, uncomplicated; Z88.8 Allergy status to other drugs, medicaments and biological substances; Z79.899 Other long term (current) drug therapy; Z90.89 Acquired absence of other organs; Z90.49 Acquired absence of other specified parts of digestive tract

== ENCOUNTER 2023-03-28 20:49 | Emergency (ER) | payer BC ==
[~2023-03-28] VITALS: Ht 182 cm; Wt 90.7 kg
[~2023-03-28 20:49] MED LIST changes: +LEVOFLOXACIN750 M2 PO; +PEPCID AC10 M2 PO; +PREDNISONE10 MG PO
[2023-03-28 21:34] LABS: BASO # 0.1 10*3/uL (0.0-0.1); BASO % 0.5 % (0.0-1.0); HEMATOCRIT 46.5 % (42.0-52.0); LYMPH # 1.1 10*3/uL (1.3-4.4); LYMPH % 7.4 % (27.0-41.0); MEAN CELL VOLUME 89.9 fl (80.0-94.0); MEAN CORPUSCULAR HGB 31.1 pg (27.0-31.0); MEAN CORPUSCULAR HGB CONC 34.6 g/dl (33.0-37.0); MEAN PLATELET VOLUME 8.8 fl (9.6-12.3); MONO # 0.6 10*3/uL (0.1-1.0); MONO % 4.2 % (3.0-9.0); NEUT # 13.5 10*3/uL (2.3-7.9); NEUT % 87.6 % (47.0-73.0); PLATELET COUNT AUTOMATED 264 10*3/uL (130-400); RED BLOOD COUNT 5.17 10*6/uL (4.50-5.90); RED CELL DISTRI WIDTH 11.9 % (0-14.5); WHITE BLOOD COUNT 15.4 10*3/uL (4.8-10.8)
[2023-03-28 22:13] LABS: ALKALINE PHOSPHATASE 60 U/L (46-116); BUN 16 mg/dl (9-23); CHLORIDE 103 mmol/L (98-107); LIPASE 37 U/L (12-53); POTASSIUM 3.4 mmol/L (3.4-5.1); SGPT/ALT 14 U/L (5-49); TOTAL PROTEIN 8.2 gm/dL (6.0-8.0)
[2023-03-28] MEDS ORDERED: ONDANSETRON4 MG SL (22:36)
== END 2023-03-28 23:47 | disposition home or self-care (01) ==
LOC: ED 20:49
PROVIDERS: Internal Medicine
DX: R10.9 Unspecified abdominal pain (principal); R11.2 Nausea with vomiting, unspecified; F17.200 Nicotine dependence, unspecified, uncomplicated; Z88.8 Allergy status to other drugs, medicaments and biological substances; Z79.2 Long term (current) use of antibiotics; Z79.899 Other long term (current) drug therapy; Z90.89 Acquired absence of other organs; Z90.49 Acquired absence of other specified parts of digestive tract; Z53.21 Procedure and treatment not carried out due to patient leaving prior to being seen by health care provider

== ENCOUNTER 2023-06-05 21:41 | Emergency (ER) | payer BC ==
[~2023-06-05] VITALS: Ht 177.8 cm; Wt 77.1 kg
[~2023-06-05 21:41] MED LIST changes: +ONDANSETRON4 MG SL
[2023-06-05] MEDS ORDERED: SODIUM CHLORIDE 0.9% 1,000 ML IV ONE (22:55)
[2023-06-05] MEDS ORDERED: Metoclopramide Hydrochloride 10 MG/2 ML AMP IV ONE (22:55)
[2023-06-05] MEDS ORDERED: IOHEXOL 300 MG/ML 100 ML VIAL IV ONE (23:00)
[2023-06-05 23:05] LABS: BASO # 0.1 10*3/uL (0.0-0.1); BASO % 0.7 % (0.0-1.0); EOS # 0.2 10*3/uL (0.0-0.4); EOS % 1.1 % (1.0-4.0); HEMATOCRIT 49.1 % (42.0-52.0); LYMPH # 1.5 10*3/uL (1.3-4.4); MEAN CELL VOLUME 92.8 fl (80.0-94.0); MEAN CORPUSCULAR HGB 31.2 pg (27.0-31.0); MEAN CORPUSCULAR HGB CONC 33.6 g/dl (33.0-37.0); MEAN PLATELET VOLUME 8.8 fl (9.6-12.3); MONO # 0.6 10*3/uL (0.1-1.0); MONO % 4.3 % (3.0-9.0); NEUT # 12.6 10*3/uL (2.3-7.9); NEUT % 83.7 % (47.0-73.0); PLATELET COUNT AUTOMATED 254 10*3/uL (130-400); RED BLOOD COUNT 5.29 10*6/uL (4.50-5.90); RED CELL DISTRI WIDTH 11.9 % (0-14.5); WHITE BLOOD COUNT 15.1 10*3/uL (4.8-10.8)
[2023-06-05] MEDS ORDERED: Pantoprazole Sodium 40 MG VIAL IV ONE (23:05)
[2023-06-05 23:28] LABS: ALKALINE PHOSPHATASE 67 U/L (46-116); BUN 12 mg/dl (9-23); CHLORIDE 100 mmol/L (98-107); LIPASE 36 U/L (12-53); POTASSIUM 3.5 mmol/L (3.4-5.1); SGPT/ALT 13 U/L (5-49); TOTAL PROTEIN 8.1 gm/dL (6.0-8.0)
[2023-06-06] MEDS ORDERED: HYDROmorphONE Hydrochloride 0.5 MG/0.5 ML SYRINGE IV ONE ×2 (00:30→04:35)
[2023-06-06 03:06] LABS: BILIRUBIN Negative (Negative); BLOOD Negative (Negative); CLARITY Turbid (Clear); COLOR Yellow (Yellow); GLUCOSE Negative (Negative); KETONE Trace (Negative); LEUKO ESTERASE Negative (Negative); NITRITE Negative (Negative); SPECIFIC GRAVITY >= 1.030 (1.001-1.030); UROBILINOGEN 0.2 E.U./dl (0.0-1.0)
[2023-06-06 03:14] LABS: PH >= 9.0 (4.5-8.0); URINE AMPHETAMINES Negative (1000ng/ml); URINE BARBITURATES Negative (200ng/ml); URINE BENZODIAZEPINES Negative (200ng/ml); URINE CANNABINOIDS (THC) Positive (50ng/ml); URINE COCAINE Negative (300ng/ml); URINE METHADONE Negative (300ng/ml); URINE OPIATES Negative (300ng/ml); URINE PHENCYCLIDINE Negative (25ng/ml)
[2023-06-06 03:16] LABS: WBC 0-2 wbc/hpf (0-5)
[2023-06-06] MEDS ORDERED: HEARTBURN PREVE20 MG PO (06:49)
== END 2023-06-06 07:05 | disposition home or self-care (01) ==
LOC: ED 21:41
PROVIDERS: Emergency Medicine
DX: R11.2 Nausea with vomiting, unspecified (principal); F12.20 Cannabis dependence, uncomplicated; R10.13 Epigastric pain; F41.9 Anxiety disorder, unspecified; K21.9 Gastro-esophageal reflux disease without esophagitis; F17.210 Nicotine dependence, cigarettes, uncomplicated; Z88.8 Allergy status to other drugs, medicaments and biological substances; Z79.2 Long term (current) use of antibiotics; Z79.899 Other long term (current) drug therapy; Z90.89 Acquired absence of other organs; Z90.49 Acquired absence of other specified parts of digestive tract

== ENCOUNTER 2023-10-27 14:47 | Emergency (ER) | payer BC ==
[~2023-10-27] VITALS: Ht 182.8 cm; Wt 81.6 kg
[~2023-10-27 14:47] MED LIST changes: +HEARTBURN PREVE20 MG PO
[2023-10-27 15:18] LABS: BASO # 0.1 10*3/uL (0.0-0.1); BASO % 0.6 % (0.0-1.0); EOS % 0.1 % (1.0-4.0); HEMATOCRIT 47.4 % (42.0-52.0); LYMPH # 0.9 10*3/uL (1.3-4.4); LYMPH % 7.9 % (27.0-41.0); MEAN CELL VOLUME 91.2 fl (80.0-94.0); MEAN CORPUSCULAR HGB 32.1 pg (27.0-31.0); MEAN CORPUSCULAR HGB CONC 35.2 g/dl (33.0-37.0); MEAN PLATELET VOLUME 8.9 fl (9.6-12.3); MONO # 0.5 10*3/uL (0.1-1.0); MONO % 3.8 % (3.0-9.0); NEUT # 10.3 10*3/uL (2.3-7.9); NEUT % 87.3 % (47.0-73.0); PLATELET COUNT AUTOMATED 238 10*3/uL (130-400); RED CELL DISTRI WIDTH 11.9 % (0-14.5); WHITE BLOOD COUNT 11.8 10*3/uL (4.8-10.8)
[2023-10-27 15:31] LABS: ALKALINE PHOSPHATASE 70 U/L (46-116); BUN 11 mg/dl (9-23); CHLORIDE 104 mmol/L (98-107); LIPASE 30 U/L (12-53); POTASSIUM 3.7 mmol/L (3.4-5.1); SGPT/ALT 16 U/L (5-49); TOTAL PROTEIN 8.2 gm/dL (6.0-8.0)
[2023-10-27] MEDS ORDERED: diphenhydrAMINE hydrochloride 50 MG/ML VIAL IV ONE (16:50)
[2023-10-27] MEDS ORDERED: SODIUM CHLORIDE 0.9% 1,000 ML IV ONE (16:50)
[2023-10-27] MEDS ORDERED: Metoclopramide Hydrochloride 10 MG/2 ML AMP IV ONE (16:50)
[2023-10-27] MEDS ORDERED: Promethazine Hydrochloride 25 MG/ML VIAL IV ONE (17:10)
== END 2023-10-27 19:20 | disposition home or self-care (01) ==
LOC: ED 14:47
PROVIDERS: Physician Assistant
DX: R11.2 Nausea with vomiting, unspecified (principal); R10.9 Unspecified abdominal pain; F12.10 Cannabis abuse, uncomplicated; Z53.29 Procedure and treatment not carried out because of patient's decision for other reasons; F17.200 Nicotine dependence, unspecified, uncomplicated; Z88.8 Allergy status to other drugs, medicaments and biological substances; Z79.2 Long term (current) use of antibiotics; Z79.899 Other long term (current) drug therapy; Z90.89 Acquired absence of other organs; Z90.49 Acquired absence of other specified parts of digestive tract

== ENCOUNTER 2024-03-23 03:32 | Emergency (ER) | payer BC ==
[~2024-03-23] VITALS: Ht 182.8 cm; Wt 83.9 kg
[2024-03-23] MEDS ORDERED: SODIUM CHLORIDE 0.9% 500 ML IV ONE (03:45)
[2024-03-23] MEDS ORDERED: Metoclopramide Hydrochloride 10 MG/2 ML VIAL IV ONE (03:45)
[2024-03-23] MEDS ORDERED: diphenhydrAMINE hydrochloride 50 MG/ML VIAL IV ONE (03:45)
[2024-03-23] MEDS ORDERED: HALOPERIDOL LACTATE IV ONE (03:55)
[2024-03-23] MEDS ORDERED: Haloperidol Lactate 5 MG/ML AMP IV ONE (04:05)
[2024-03-23] MEDS ORDERED: REGLAN10 M1 PO (05:06)
== END 2024-03-23 05:18 | disposition home or self-care (01) ==
LOC: ED 03:32
DX: K31.84 Gastroparesis (principal); Z53.29 Procedure and treatment not carried out because of patient's decision for other reasons; K21.9 Gastro-esophageal reflux disease without esophagitis; F12.10 Cannabis abuse, uncomplicated; Z88.8 Allergy status to other drugs, medicaments and biological substances; Z90.89 Acquired absence of other organs; Z90.49 Acquired absence of other specified parts of digestive tract; Z98.890 Other specified postprocedural states; Z72.0 Tobacco use